=== PATIENT | male | born 1945 | race Caucasian/White ===

== ENCOUNTER 2016-11-22 08:26 | Day surgery (SDC) | payer MEDICARE, OTHER ==
[2016-11-22] MEDS: Lactated Ringers 1,000 ML IV SCH (09:08)
[2016-11-22] MEDS ORDERED: Acetaminophen 1,000 MG in Premix Bag 1 BAG IV ONE (10:08)
[2016-11-22] MEDS ORDERED: Ondansetron 4 MG/2 ML SDV ONE (11:05)
[2016-11-22] MEDS ORDERED: fentaNYL 100 MCG/2 ML SDV ONE (11:05)
[2016-11-22] MEDS ORDERED: Ketorolac 30 MG/ML SDV ONE (11:05)
[2016-11-22] MEDS ORDERED: Propofol 200 MG/20 ML SDV ONE ×2 (11:05→11:35)
[2016-11-22] MEDS ORDERED: Midazolam 1 MG/ML 2 ML SDV ONE (11:06)
[2016-11-22] MEDS ORDERED: ceFAZolin 1 GM Vial ONE (11:27)
[2016-11-22] MEDS ORDERED: Succinylcholine 200 MG/10 ML MDV ONE (11:35)
[2016-11-22] MEDS: Bupivacaine 0.25%/EPINEPHrine 1:200,000 30 ML SDV INFILT ONE (11:55)
[2016-11-22] MEDS ORDERED: Lactated Ringers 1,000 ML ONE (12:18)
[2016-11-22] MEDS: Acetaminophen/oxyCODONE 325-5 MG Tab PO PRN (14:22)
[2016-11-22 15:02] VITALS: BP 130/69
--- NOTE | 2016-11-25 09:31 | OR ---
PREOPERATIVE DIAGNOSIS: Left indirect inguinal hernia. POSTOPERATIVE DIAGNOSIS: Left indirect inguinal hernia. PROCEDURE PROPOSED: Left indirect inguinal hernia repair, tension free with mesh. PROCEDURE DONE: Left indirect inguinal hernia repair, tension free with mesh. INDICATION: A 71-year-old gentle with a rather large inguinal scrotal hernia, who comes in for elective repair. TECHNIQUE: The patient was brought to the operative suite and given a general endotracheal anesthetic by DEPUTY FIRE CHIEF. The left groin area was trimmed and sterilely prepped and draped. The skin was then locally anesthetized with 4% Marcaine, and an oblique incision was made in the left groin carried down through the subcutaneous tissue. The external oblique fascia was opened along its direction of fibers. The patient was found to have a very large hernia sac. I reduced the hernia. I freed up the hernia sac from the cord structures and placed a Paris drain around the cord structures. In the process of freeing up the hernia sac, some bleeding was encountered from the inferior epigastric artery and vein and this was controlled with clamping and ligation with several stitches of Ethibond sutures. After obtaining good hemostasis, a plug was placed into the internal ring and anchored circumferentially with interrupted 0 Ethilon sutures. The keyhole flat piece of mesh was then placed across the inguinal floor anchoring it to medially to the symphysis pubis, inferiorly to the inguinal ligament, and then laterally to the internal oblique fascia, placed around the cord, anchored with several stitches out laterally, and the external oblique fascia was then closed over the cord with a running 3-0 Vicryl, the subcutaneous tissues was reapproximated with interrupted 3-0 Vicryl, and the skin closed with subcuticular stitch of 4-0 Vicryl, and a sterile pressure dressing was applied. He tolerated the procedure well. Blood loss was probably 40-50 mL. He was taken back to recovery in good condition. SCM: 11/22/2016 12:39:46 MODL: 11/22/2016 17:47:00 /[id number]
== END 2016-11-22 15:00 | disposition home or self-care (01) ==
LOC: VM.SDS 08:26
PROVIDERS: ATTEND Surgery
DX: K40.90 Unilateral inguinal hernia, without obstruction or gangrene, not specified as recurrent (principal); I10 Essential (primary) hypertension; E78.5 Hyperlipidemia, unspecified; E03.9 Hypothyroidism, unspecified; E05.00 Thyrotoxicosis with diffuse goiter without thyrotoxic crisis or storm; Z79.899 Other long term (current) drug therapy; Z79.82 Long term (current) use of aspirin
CPT/HCPCS: 00830; A9270-GY; C1781; J0330; J0690; J1885; J2250; J2405; J2704; J3010; J7120

== ENCOUNTER 2018-04-11 13:19 | Emergency (ER) | payer MEDICARE, OTHER ==
[2018-04-11 13:31] VITALS: BP 140/78
[2018-04-11] MEDS ORDERED: Lidocaine 1% 30 ML SDV INJECT ONE (13:45)
--- NOTE | 2018-04-11 14:22 | EDM.PDOC ---
ED HPI GENERAL MEDICAL PROBLEM - General Chief Complaint: Laceration Stated Complaint: CUT RIGHT WRIST Time Seen by Provider: 04/11/18 13:30 Source of Information: Reports: Patient History Limitations: Reports: No Limitations - History of Present Illness INITIAL COMMENTS - FREE TEXT/NARRATIVE: PtRoxane presents to ER with complaints of laceration to his R wrist. States that he sustained to laceration while removing a window. His tetanus is UTD. He states that ROM in the wrist and fingers are normal Denies any paresthesia distal to the area of injury. He states that the injury is isolated to the R wrist. Location: Reports: Upper Extremity, Right - Related Data Allergies Allergy/AdvReac Type Severity Reaction Status Date / Time No Known Allergies Allergy Verified 04/11/18 13:31 Home Meds: Home Meds Aspirin [Ecotrin] 81 mg PO DAILY 11/18/16 [History] Hydrochlorothiazide 25 mg PO DAILY 11/18/16 [History] Levothyroxine 175 mcg PO DAILY 11/18/16 [History] Lisinopril 40 mg PO DAILY 11/18/16 [History] Simvastatin [Zocor] 40 mg PO BEDTIME 11/18/16 [History] Past Medical History HEENT History: Reports: None Cardiovascular History: Reports: High Cholesterol, Hypertension Respiratory History: Reports: None Gastrointestinal History: Reports: None Genitourinary History: Reports: None Musculoskeletal History: Reports: None Neurological History: Reports: None Psychiatric History: Reports: None Endocrine/Metabolic History: Reports: Hypothyroidism Other Endocrine/Metabolic History: graves disease Hematologic History: Reports: None Immunologic History: Reports: None Oncologic (Cancer) History: Reports: None Dermatologic History: Reports: None - Past Surgical History Head Surgeries/Procedures: Reports: None HEENT Surgical History: Reports: Tonsillectomy GI Surgical History: Reports: Appendectomy Endocrine Surgical History: Reports: Other (See Below) Other Endocrine Surgeries/Procedures: Overactive thyroid Musculoskeletal Surgical History: Reports: None Oncologic Surgical History: Reports: None Social & Family History - Tobacco Use Smoking Status *Q: Never Smoker Second Hand Smoke Exposure: Yes - Recreational Drug Use Recreational Drug Use: No ED ROS GENERAL - Review of Systems Review Of Systems: See Below Musculoskeletal: Reports: Other (laceration to R dorsum or wrist) Neurological: Reports: No Symptoms ED EXAM, SKIN/RASH Exam: See Below Exam Limited By: No Limitations General Appearance: Alert, WD/WN, No Apparent Distress Extremities: Normal Inspection, Normal Range of Motion, Non-Tender, Normal Capillary Refill, Other (L wrist pain/laceration) Neurological: Alert, Oriented, CN II-XII Intact, Normal Cognition, Normal Gait, Normal Reflexes, No Motor/Sensory Deficits Course - Vital Signs Last Recorded V/S: Last Vital Signs Temp 36.3 C 04/11/18 13:25 Pulse 65 04/11/18 13:25 Resp 16 04/11/18 13:25 BP 140/78 04/11/18 13:25 Pulse Ox 97 04/11/18 13:25 - Orders/Labs/Meds Meds: Medications Discontinued Medications Generic Name Dose Route Start Last Admin Trade Name Najma PRN Reason Stop Dose Admin Lidocaine HCl 30 ml 04/11/18 13:45 04/11/18 13:56 Xylocaine-Mpf 1% INJECT 04/11/18 13:46 30 ml ONETIME ONE Administration Departure - Departure Time of Disposition: 14:22 Disposition: Home, Self-Care 01 Clinical Impression: Laceration - Discharge Information Instructions: Laceration Care, Adult Forms: ED Department Discharge Additional Instructions: Keep dry for 24 hours. Sutures out in 10 days. This can be done in the clinic. Return if redness, swelling, or discharge from the area. Keep open to air as much as possible, cover if you anticipate the area getting dirty.
== END 2018-04-11 14:14 | disposition home or self-care (01) ==
LOC: VM.ED 13:19
DX: S61.511A Laceration without foreign body of right wrist, initial encounter (principal); I10 Essential (primary) hypertension; Z79.82 Long term (current) use of aspirin; Z79.899 Other long term (current) drug therapy; Z77.22 Contact with and (suspected) exposure to environmental tobacco smoke (acute) (chronic); W25.XXXA Contact with sharp glass, initial encounter
CPT/HCPCS: 12002; 99282

== ENCOUNTER 2019-10-05 10:32 | Emergency (ER) | payer OTHER, MEDICARE ==
[2019-10-05] MEDS ORDERED: Sodium Chloride 0.9% 10 ML Syringe FLUSH PRN ×3 (10:39→11:56)
[2019-10-05] MEDS ORDERED: HYDROmorphone 1 MG/ML Syringe IVPUSH ONE ×2 (10:47→12:04)
[2019-10-05] MEDS ORDERED: Ondansetron 4 MG/2 ML SDV IVPUSH ONE (10:47)
--- NOTE | 2019-10-05 10:51 | EDM.PDOC ---
ED HPI GENERAL MEDICAL PROBLEM - General Chief Complaint: Trauma Stated Complaint: Fall Time Seen by Provider: 10/05/19 10:35 Source of Information: Reports: EMS - History of Present Illness INITIAL COMMENTS - FREE TEXT/NARRATIVE: Colby is a 73 y/o male who is brought to the ER by EMS after he fell off of a ladder that he was standing on while cleaning the snow off the roof of his house. He was about 6-7 feet up on the ladder when it slipped. He landed on his left side and was unable to get up. He was not outside very long before someone saw him and called 911. He is complaining of left sided chest/rib, left sided back pain, and left sided hip pain. Denies LOC. He fell onto the cement. It hurts to take a deep breath. - Related Data Allergies Allergy/AdvReac Type Severity Reaction Status Date / Time No Known Allergies Allergy Verified 04/11/18 13:31 Home Meds: Home Meds Aspirin [Ecotrin EC] 81 mg PO DAILY 11/18/16 [History] Hydrochlorothiazide 25 mg PO DAILY 11/18/16 [History] Levothyroxine 175 mcg PO DAILY 11/18/16 [History] Lisinopril 40 mg PO DAILY 11/18/16 [History] Simvastatin [Zocor] 40 mg PO BEDTIME 11/18/16 [History] Past Medical History HEENT History: Reports: None Cardiovascular History: Reports: High Cholesterol, Hypertension Respiratory History: Reports: None Gastrointestinal History: Reports: None Genitourinary History: Reports: None Musculoskeletal History: Reports: None Neurological History: Reports: None Psychiatric History: Reports: None Endocrine/Metabolic History: Reports: Hypothyroidism Other Endocrine/Metabolic History: graves disease Hematologic History: Reports: None Immunologic History: Reports: None Oncologic (Cancer) History: Reports: None Dermatologic History: Reports: None - Past Surgical History Head Surgeries/Procedures: Reports: None HEENT Surgical History: Reports: Tonsillectomy GI Surgical History: Reports: Appendectomy Endocrine Surgical History: Reports: Other (See Below) Other Endocrine Surgeries/Procedures: Overactive thyroid Musculoskeletal Surgical History: Reports: None Oncologic Surgical History: Reports: None Review of Systems - Review of Systems Review Of Systems: See Below Constitutional: Reports: No Symptoms Eyes: Reports: No Symptoms Ears: Reports: No Symptoms Nose: Reports: No Symptoms Mouth/Throat: Reports: No Symptoms Respiratory: Reports: No Symptoms, Pleuritic Chest Pain Cardiovascular: Reports: Chest Pain (left sided) GI/Abdominal: Reports: No Symptoms Genitourinary: Reports: No Symptoms Musculoskeletal: Reports: Back Pain, Other (left sided rib and hip pain) Skin: Reports: No Symptoms Neurological: Reports: No Symptoms Psychiatric: Reports: No Symptoms ED EXAM, GENERAL - Physical Exam Exam: See Below General Appearance: Alert, WD/WN, No Apparent Distress, Other (Elderly male, secured on spine board) Nose: Normal Inspection Throat/Mouth: Normal Teeth, Normal Voice Head: Atraumatic, Normocephalic Neck: Other (c collar remains on) Respiratory/Chest: No Respiratory Distress, Lungs Clear, Normal Breath Sounds, Other (+tender along left lateral rib region, no obvious injury) Cardiovascular: Regular Rate, Rhythm, No Edema, No Murmur GI/Abdominal: Normal Bowel Sounds, Soft, Non-Tender, Pelvis Stable (Male) Exam: Normal Inspection Rectal (Males) Exam: Deferred Back Exam: Normal Inspection Extremities: Normal Inspection, Normal Range of Motion, Normal Capillary Refill Neurological: Alert, Oriented, CN II-XII Intact, Normal Cognition Psychiatric: Normal Affect, Normal Mood Skin Exam: Warm, Dry, Intact, Normal Color, No Rash Lymphatic: No Adenopathy EKG INTERPRETATION EKG Date: 10/05/19 Time: 11:20 Rhythm: NSR Rate (Beats/Min): 55 [place]: Normal (55) P-Wave: Present QRS: LBBB ST-T: Normal EKG Interpretation Comments: SR with LBBB Course - Vital Signs Text/Narrative:: 1035 Patient is seen on arrival to the ED. Labs, EKG, and CTs are ordered. Plain film CXR and Pelvis deferred since patient has stable vitals and will need CTs due to mechanism of injury. Dilaudid 1 mg IVP was ordered for pain. 1130 CT of Chest/Abd/Pelvis W Contrast viewed by WILDLIFE CONTROL AGENT, notes 5-6 left sided fractured ribs and a pelvis fracture. Radiology read is pending at this time. [address] [facility] contacted and case presented. Dr Franco accepted patient for transport to the ER. Vitals remain stable. IV bolus of NS infusing. Patient packaged for transport and left the ED in stable condition with [facility]. - Orders/Labs/Meds Orders: Active Orders 24 hr Category Date Time Status EKG Documentation Completion [RC] STAT Care 10/05/19 10:44 Active Vital Signs [RC] Q5M Care 10/05/19 10:41 Active Abdomen w Cont [CT] Stat Exams 10/05/19 10:41 Ordered Cervical Spine wo Cont [CT] Stat Exams 10/05/19 10:41 Ordered Chest Abdomen Pelvis w Cont [CT] Stat Exams 10/05/19 10:41 Ordered Head wo Cont [CT] Stat Exams 10/05/19 10:41 Ordered Pelvis w Cont [CT] Stat Exams 10/05/19 10:41 Ordered COMPREHENSIVE METABOLIC PN,CMP [CHEM] Stat Lab 10/05/19 11:14 Received DRUG SCREEN, URINE [URCHEM] Stat Lab 10/05/19 10:41 Ordered ETHANOL BLOOD MEDICAL [CHEM] Stat Lab 10/05/19 11:14 Received TROPONIN I [CHEM] Stat Lab 10/05/19 11:14 Received UA W/MICROSCOPIC [URIN] Stat Lab 10/05/19 10:41 Ordered Sodium Chloride 0.9% @ Wide Open(1,000ml) Med 10/05/19 11:27 Ordered Sodium Chloride 0.9% [Normal Saline] 1,000 ml IV ONETIME Sodium Chloride 0.9% [Saline Flush] Med 10/05/19 10:39 Active 10 ml FLUSH ASDIRECTED PRN Sodium Chloride 0.9% [Saline Flush] Med 10/05/19 10:39 Active 10 ml FLUSH ASDIRECTED PRN Peripheral IV Insertion Adult [OM.PC] Urgent Oth 10/05/19 10:41 Ordered Saline Lock Insert [OM.PC] Urgent Oth 10/05/19 10:41 Ordered Medication Orders Sodium Chloride (Normal Saline) 1,000 mls @ 999 mls/hr IV ONETIME ONE Stop: 10/05/19 12:27 Sodium Chloride (Saline Flush) 10 ml FLUSH ASDIRECTED PRN PRN Reason: Keep Vein Open Sodium Chloride (Saline Flush) 10 ml FLUSH ASDIRECTED PRN PRN Reason: Keep Vein Open Labs: Laboratory Tests 10/05/19 10/05/19 Range/Units 11:14 11:14 WBC 16.3 H (4.0-10.0) x10^3/uL RBC 3.86 L (4.5-6.0) x10^6/uL Hgb 12.1 L (14.0-18.0) g/dL Hct 36.8 L (40.0-52.0) % MCV 95.3 H (78.0-93.0) fL MCH 31.3 (26.0-32.0) pg MCHC 32.9 (32.0-36.0) g/dL RDW Coeff of [place] 13.1 (10.0-15.0) % Plt Count 230 (130-400) x10^3/uL Add Manual Diff Yes Neutrophils % (Manual) 69 (50-80) % Band Neutrophils % 22 H (0-6) % Lymphocytes % (Manual) 7 L (25-50) % Monocytes % (Manual) 2 (2-11) % Platelet Estimate Adequate PT 11.2 (10.0-12.8) SEC INR 1.0 L (2.0-3.5) APTT 23.1 L (24.0-36.0) SEC Meds: Medications Generic Name Dose Route Start Last Admin Trade Name Freq PRN Reason Stop Dose Admin Sodium Chloride 1,000 mls @ 999 mls/hr 10/05/19 11:27 Normal Saline IV 10/05/19 12:27 ONETIME ONE Sodium Chloride 10 ml 10/05/19 10:39 Saline Flush FLUSH ASDIRECTED PRN Keep Vein Open Sodium Chloride 10 ml 10/05/19 10:39 Saline Flush FLUSH ASDIRECTED PRN Keep Vein Open Discontinued Medications Generic Name Dose Route Start Last Admin Trade Name Freq PRN Reason Stop Dose Admin Hydromorphone HCl 1 mg 10/05/19 10:47 Dilaudid IVPUSH 10/05/19 10:48 ONETIME ONE Iopamidol 100 ml 10/05/19 11:05 10/05/19 11:43 Isovue-300 (61%) IVPUSH 10/05/19 11:06 100 ml ONETIME ONE Administration Ondansetron HCl 4 mg 10/05/19 10:47 Zofran IVPUSH 10/05/19 10:48 ONETIME ONE - Radiology Interpretation Free Text/Narrative:: CT Chest/Abd/Pelvic W=note 5+ fractures ribs on the left side, pelvis fracture ( radiology reading pending) CT Head WO and CSpine WO=pending Departure - Departure Time of Disposition: 11:35 Disposition: DC/Tfer to [email or web address] Clinical Impression: Fall from ladder, Pelvis fracture, Hx of essential hypertension, Multiple rib fractures involving four or more ribs - Discharge Information *PRESCRIPTION DRUG MONITORING PROGRAM REVIEWED*: Not Applicable *COPY OF PRESCRIPTION DRUG MONITORING REPORT IN PATIENT SARAI: Not Applicable Referrals: He Masterson MD [Primary Care Provider] - Forms: ED Department Discharge, Interfacility Transfer EMTALA Additional Instructions: -Transfer to [facility] ER to Dr Franco via [facility] -IV fluids/pain meds as needed for transport -CT radiology readings pending, continue Cpsine immobilization Sepsis Event Note - Focused Exam Date Exam was Performed: 10/05/19 Time Exam was Performed: 11:43 - Problem List & Annotations (1) Multiple rib fractures involving four or more ribs SNOMED Code(s): 1571183 Code(s): S22.49XA - MULTIPLE FRACTURES OF RIBS, UNSP SIDE, INIT FOR CLOS FX Status: Acute Current Visit: Yes (2) Pelvis fracture SNOMED Code(s): 94080406 Code(s): S32.9XXA - FRACTURE OF UNSP PARTS OF LUMBOSACRAL SPINE AND PELVIS, INIT Status: Acute Current Visit: Yes (3) Fall from ladder SNOMED Code(s): 45989138 Code(s): W11.XXXA - FALL ON AND FROM LADDER, INITIAL ENCOUNTER Status: Acute Current Visit: No - Problem List Review Problem List Initiated/Reviewed/Updated: Yes - My Orders Last 24 Hours: My Active Orders 10/05/19 10:39 Sodium Chloride 0.9% [Saline Flush] 10 ml FLUSH ASDIRECTED PRN Sodium Chloride 0.9% [Saline Flush] 10 ml FLUSH ASDIRECTED PRN 10/05/19 10:41 Vital Signs [RC] Q5M Abdomen w Cont [CT] Stat Cervical Spine wo Cont [CT] Stat Chest Abdomen Pelvis w Cont [CT] Stat Head wo Cont [CT] Stat Pelvis w Cont [CT] Stat DRUG SCREEN, URINE [URCHEM] Stat UA W/MICROSCOPIC [URIN] Stat Peripheral IV Insertion Adult [OM.PC] Urgent Saline Lock Insert [OM.PC] Urgent 10/05/19 10:44 EKG Documentation Completion [RC] STAT 10/05/19 11:14 COMPREHENSIVE METABOLIC PN,CMP [CHEM] Stat ETHANOL BLOOD MEDICAL [CHEM] Stat TROPONIN I [CHEM] Stat 10/05/19 11:27 Sodium Chloride 0.9% @ Wide Open(1,000ml) Sodium Chloride 0.9% [Normal Saline] 1 ,000 ml IV ONETIME - Assessment/Plan Last 24 Hours: My Active Orders 10/05/19 10:39 Sodium Chloride 0.9% [Saline Flush] 10 ml FLUSH ASDIRECTED PRN Sodium Chloride 0.9% [Saline Flush] 10 ml FLUSH ASDIRECTED PRN 10/05/19 10:41 Vital Signs [RC] Q5M Abdomen w Cont [CT] Stat Cervical Spine wo Cont [CT] Stat Chest Abdomen Pelvis w Cont [CT] Stat Head wo Cont [CT] Stat Pelvis w Cont [CT] Stat DRUG SCREEN, URINE [URCHEM] Stat UA W/MICROSCOPIC [URIN] Stat Peripheral IV Insertion Adult [OM.PC] Urgent Saline Lock Insert [OM.PC] Urgent 10/05/19 10:44 EKG Documentation Completion [RC] STAT 10/05/19 11:14 COMPREHENSIVE METABOLIC PN,CMP [CHEM] Stat ETHANOL BLOOD MEDICAL [CHEM] Stat TROPONIN I [CHEM] Stat 10/05/19 11:27 Sodium Chloride 0.9% @ Wide Open(1,000ml) Sodium Chloride 0.9% [Normal Saline] 1 ,000 ml IV ONETIME Plan: Transfer to [facility]
[2019-10-05] MEDS ORDERED: Iopamidol 612 MG/ML 100 ML Bottle IVPUSH ONE (11:05)
[2019-10-05] MEDS ORDERED: Sodium Chloride 0.9% 1,000 ML IV ONE ×2 (11:27→14:29)
[2019-10-05 11:44] LABS: CHLORIDE,CL 103 mmol/L (98-107); SODIUM,NA 141 mmol/L (136-145)
[2019-10-05 11:46] LABS: BARBITURATE SCREEN,URINE NEGATIVE (NEGATIVE); BENZODIAZEPINES SCREEN,URINE NEGATIVE (NEGATIVE); EDDP,URINE SCREEN NEGATIVE (NEGATIVE); METHAMPHETAMINE SCREEN, URINE NEGATIVE (NEGATIVE)
[2019-10-05 11:47] LABS: TCA SCREEN,URINE NEGATIVE (NEGATIVE); THC SCREEN,URINE 50 NG/ML NEGATIVE (NEGATIVE)
--- NOTE | 2019-10-05 11:54 | CT ---
[id number] CT/CT Cervical Spine WO IV EXAM: NONCONTRAST CERVICAL SPINE CT INDICATION: FALL OFF LADDER. COMPARISON: None. DISCUSSION: The vertebral bodies are normal in height and alignment. No fracture or suspicious osseous lesion is identified. Mild to moderate degenerative disc disease and facet arthropathy throughout the cervical spine. IMPRESSION: 1. No evidence of acute cervical spine trauma. Randolph Fuentes MD 10/05/19 2316 Thank you for allowing us to participate in the care of your patient.
--- NOTE | 2019-10-05 11:55 | CT ---
[id number] CT/CT Head WO IV EXAM: CT Head WO IV CLINICAL DATA: FALL OFF LADDER. COMPARISON STUDY: None FINDINGS: No intracranial hemorrhage, extra-axial fluid collection, mass, or acute ischemia. 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 Generalized parenchymal atrophy with scattered areas of nonspecific white matter disease, commonly seen as sequela of chronic microvascular ischemia. Soft tissues are unremarkable. Mucous retention cyst within the right maxillary sinus. Otherwise, the remaining paranasal sinuses and mastoid air cells are well aerated and clear. IMPRESSION: No acute intracranial findings. Drake Collins DO 10/05/19 1153 Thank you for allowing us to participate in the care of your patient.
--- NOTE | 2019-10-05 12:13 | CT ---
[id number] CT/CT Chest Abdomen Pelvis W IV EXAM: CT Chest Abdomen Pelvis W IV CLINICAL DATA: FALL OFF LADDER. COMPARISON STUDY: None. FINDINGS: Small left pleural effusion with left lower lobe pulmonary contusion and/or dependent atelectasis and a small pneumothorax seen in the anterior base of the left hemithorax on series 2 image 78 as well as a small amount in the paramediastinal region of the right upper lobe. No evidence of traumatic aortic injury. Heart is normal in size. No pericardial effusion. Abdomen and pelvis: Liver, spleen, gallbladder, pancreas, adrenal glands, and kidneys are unremarkable. No evidence of bowel injury, obstruction, or inflammation. Urinary bladder is intact. No lymphadenopathy, free fluid, or pneumoperitoneum. Bones and soft tissues: Multiple acute rib fractures including: - Flail segments of the sixth, seventh, eighth, ninth, and 10th ribs. Posterior fractures of the seventh and ninth ribs are displaced at least a shaft width. - Nondisplaced left fourth, fifth, and 11th rib fracture. 12th rib is hypoplastic. Additional fractures including: - Acute appearing mild T4 compression fracture - Nondisplaced left T8 and T9 transverse process - Left transverse processes at L1-L5 -Possible nondisplaced fracture of the right L1 inferior articulating facet - Nondisplaced right sacral ala - Avulsion fracture along the anterior left sacral ala - Slightly displaced fracture of the posterior right iliac bone. A portion of the fracture extends through the subchondral endplate at the sacroiliac joint - Nondisplaced intra-articular fracture of the posterior left iliac bone - Acute displaced fracture of the bilateral superior and inferior pubic rami Iliac and sacral fractures result in widening of the bilateral anterior sacroiliac joints. Bleeding within the pelvis left greater than right with an area of active bleeding just anterior to the left sacroiliac joint (series 2 image 23). 22 mm hematoma in the left left pelvis. IMPRESSION: Extensive pelvic fractures with widening of the bilateral sacroiliac joints and bleeding within the pelvis, including an area of active bleeding left of midline described above. Acute fractures of the left fourth through 11th ribs. 6 through 10th ribs demonstrate flail segments of which at least 2 fractures are displaced. Tiny left pneumothorax. Left effusion and pulmonary contusion. Multiple additional fractures are described in detail above. Results relayed to Yeni Isaac at time of dictation Aleksandr Dejesus MD 10/05/19 1212 Thank you for allowing us to participate in the care of your patient.
== END 2019-10-05 12:16 ==
LOC: VM.ED 10:32
DX: S32.592A Other specified fracture of left pubis, initial encounter for closed fracture (principal); S32.302A Unspecified fracture of left ilium, initial encounter for closed fracture; S22.42XA Multiple fractures of ribs, left side, initial encounter for closed fracture; J93.9 Pneumothorax, unspecified; I10 Essential (primary) hypertension; E78.00 Pure hypercholesterolemia, unspecified; E03.9 Hypothyroidism, unspecified; Z79.82 Long term (current) use of aspirin; Z79.890 Hormone replacement therapy; Z79.899 Other long term (current) drug therapy; W11.XXXA Fall on and from ladder, initial encounter; Y93.H9 Activity, other involving exterior property and land maintenance, building and construction; Y92.008 Other place in unspecified non-institutional (private) residence as the place of occurrence of the external cause
CPT/HCPCS: 36415; 36430; 70450; 71260; 72125; 74177; 80053; 80305-QW; 81001; 84484; 85025; 85610; 85730; 86850; 86900; 86901; 86920; 86922; 93005; 93010; 96361; 96374; 96375; 96376; 99284-GF; 99285-25; G0480; J1170; J2405; J7030; P9016; Q9967

== ENCOUNTER 2019-10-22 12:27 | Inpatient (IN) | payer MEDICARE, OTHER ==
[2019-10-22] MEDS ORDERED: Heparin Sodium 100 Units/ML 3 ML Syringe FLUSH PRN (17:18)
[2019-10-22] MEDS ORDERED: tiZANidine 4 MG Tab PO PRN (17:18)
[2019-10-22] MEDS ORDERED: Bisacodyl 10 MG Supp RECTAL PRN (17:18)
[2019-10-22] MEDS: Acetaminophen 500 MG Tab PO SCH (18:06)
[2019-10-22] MEDS: Melatonin 3 MG Tab PO SCH ×2 (20:31→20:40)
[2019-10-22] MEDS: Simvastatin 40 MG Tab PO SCH ×2 (20:31→20:41)
[2019-10-22] MEDS: Polyethylene Glycol 3350 Powder 17 GM Packet PO SCH (20:31)
[2019-10-22] MEDS: Metoprolol Tartrate 25 MG Tab PO SCH ×2 (20:31→20:40)
[2019-10-22] MEDS ORDERED: Heparin Sodium 100 Units/ML 3 ML Syringe FLUSH SCH (21:00)
[2019-10-22] MEDS: Sodium Chloride 0.9% 10 ML Syringe IV SCH (22:29)
[2019-10-22] MEDS: Heparin Sodium 100 Units/ML 3 ML Syringe FLUSH PRN (22:30)
[2019-10-22] MEDS: Beta-Carotene (Vitamin A) w/Vitamin C & E plus Minerals Tab PO SCH (22:32)
[2019-10-23] MEDS: Acetaminophen 500 MG Tab PO SCH ×6 (01:41→23:48)
--- NOTE | 2019-10-23 04:06 | HP ---
CHIEF COMPLAINT: Trauma. HISTORY OF PRESENT ILLNESS: This is a 73-year-old male who was trying to clean some snow off his roof on a ladder, which slipped and fell forward. He fell about 8 feet, suffering some multiple rib fractures on the left, needing surgical rib fixation, ribs 6 through 9, and a complex bilateral pelvic fracture requiring ORIF of bilateral iliac and sacral fractures. He had a T4 compression fracture, transverse process fractures, T8 through T9 and L2 through L5, a large retroperitoneal pelvic hematoma with acute blood loss anemia, atrial fibrillation with RVR postop, but in sinus rhythm before discharge. He also was apparently getting H influenzae pneumonia while he was there, delirium due to the prolonged illness, which is resolving and better per his , but he is still getting up at night, not realizing that he is not supposed to walk. 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 He got some neostigmine. He got some Relistor to block the effects of narcotics. Luckily, he has been off them for a couple of days and his pain is manageable. He had Reglan. That was stopped today. He was on half TPN stopped yesterday as he was able to eat and tolerated diet. He denies any nausea or abdominal pain currently. Did tell me he had a good bowel movement today. He is able to work with PT using the slide board. That started yesterday. He may do pivot transfers. He had some followup x- rays, which all looked good. His chest tube has come out. He did have some findings on his cerebral hemisphere consistent with an old infarct. This was on his imaging. Prior to the admission, he had a history of hypertension, hyperlipidemia, and Graves disease. He did not report any known history of strokes or heart disease. The patient comes today. He is not coughing. He feels his breathing is improved. He has a lot of leg swelling. He did get 20 mEq of IV potassium through his PICC line as well as 20 mEq oral today. Because of his ileus, they had been holding back on a lot of oral potassium. It was actually just 2.9. He is also on hydrochlorothiazide. The patient has been getting Lovenox for DVT prophylaxis per Orthopedics to continue until 11/19. The patient is also to wear his TLSO brace when up and out of bed. Cardiology did recommend amiodarone for him, which he continues. He is back on room air. He was in a drug-induced coma for 2-3 days after surgery per his . ALLERGIES: None. MEDICATION LIST: Reviewed and includes Lidoderm patch for pain, MiraLAX 2 times a day, docusate, senna, Dulcolax suppository p.r.n., melatonin 3 mg at bedtime, heparin flushes for the PICC, Zanaflex 2 mg every 8 hours for spasm, Lovenox 40 mg for 28 days, multivitamin daily, levothyroxine 175 mcg daily, Zocor 40 mg at bedtime, hydrochlorothiazide 25 mg daily, aspirin 81 mg daily. PAST MEDICAL HISTORY: Again, he was quite healthy. He had some Graves disease, now hypothyroid after treatment, hyperlipidemia, essential hypertension. FAMILY HISTORY: Father had coronary artery disease, in his 40s, but drank and smoked. Otherwise, his mother is also at 91, had macular degeneration surgery. He has had the tonsillectomy, rib fixation, radionuclide therapy for thyroid destruction, fusion of the SI joint, and appendectomy. SOCIAL HISTORY: He is . He lives at home with his in [place], [place]. He is retired from [employer]. He is a nonsmoker, nondrinker. REVIEW OF SYSTEMS: The patient denies that he has had any fever or chills. His weight today was up 10 pounds since it was back in May. HEENT: He denies any trouble swallowing. Cardiac: No chest pain. He has not noticed any palpitations. Respiratory: No cough. Abdomen: He denies any nausea, vomiting, or diarrhea today. Musculoskeletal: He has had a lot of leg swelling. He has had some pain in his ribs and hip, but otherwise he is managing. Otherwise, all systems reviewed and found to be negative unless otherwise stated. PHYSICAL EXAMINATION: Vital signs: His weight 79.069 kg, temp 97.8, pulse 63, blood pressure 119/64, respiratory rate 18, O2 of 97% on room air. General: He is in no acute distress. Heart: Irregularly irregular, but rates are controlled. Lungs: Sounds are clear to auscultation bilaterally without any crackles or wheezes appreciated. Abdomen: Slight distention, but positive bowel sounds. Slightly hypoactive, but soft, nontender. Extremities: Warm and dry. There is 2+ edema to the mid irby. Mental status: He is alert. He is orientated x3. He asks appropriate questions. His is at the bedside. LABORATORY WORK: Today from [place] was reviewed, did show his glucose 117 prior to transfer, BUN 23, creatinine 0.68, sodium 143, potassium 2.9, chloride 111, bicarb 24, calcium 8. His white count 8.5, hemoglobin 8.6, platelets 448. Magnesium was normal several days ago. ASSESSMENT: Trauma from a fall off ladder 8 feet while clearing snow, fell front side of his body first onto cement. He denies hitting his head. Denies that there was any cranial trauma. I do not see anything documented. He had multiple left-sided rib fractures, a pulmonary contusion, and hemopneumothorax status post chest tube which was removed. He had bilateral pelvic fractures status post open reduction and internal fixation. He had compression fractures of the spine, retroperitoneal hematoma with acute blood loss anemia. I do not see any report of transfusion in my review. He had the atrial fibrillation with rapid ventricular response. He still appears to be in an irregular rhythm. If this continues, we will do an EKG. He had the colonic pseudo-obstruction, which appears to be resolved; the delirium, which appears to be improved. said he still has some intermittent confusion like when he wakes up during the night and hypokalemia that is being replaced. SECONDARY: 1. Hypothyroidism, on home medications. 2. Essential hypertension, controlled. 3. Hyperlipidemia. PLAN: The patient will be admitted to swing bed [facility]. He will have PT and OT working with him. He is not to be ambulating. He is to be doing 30 pounds partial weightbearing to that right lower extremity and weightbearing as tolerated on the left lower extremity for pivot transfers only. He will continue the Lovenox for the 28 days and follow up with Dr. Ledbetter 6 weeks postop. He is also to follow up with Cardiology in 4 weeks to decide on the amiodarone. He will continue it for now. Neurosurgery in [address] of his thoracic spine. He will need followup x-rays of the pelvis when he sees Dr. Ledbetter. He will also see Trauma Surgery in 3 months for the rib fixation that Dr. Luna performed. He will continue the TLSO when out of bed. Wounds are all open to the air. There are no sutures in place. He should have daily electrolyte monitoring. Otherwise, he will continue on incentive spirometry. The PICC line will continue until it is no longer needed and then we will remove it. I if he has trouble with eating, drinking again, we will repeat x-rays and restart Reglan. Otherwise, the patient's plan of care is discussed with him and his . He is a code level 1. MKA: 10/22/2019 22:24:59 MODL: 10/23/2019 04:00:01 /[id number] MTDD
[2019-10-23] MEDS ORDERED: Potassium Chloride 10 MEQ Tab.ER PO SCH (08:00)
[2019-10-23] MEDS ORDERED: Hydrochlorothiazide 25 MG Tab PO SCH (08:00)
[2019-10-23] MEDS: Enoxaparin 40 MG/0.4 ML Syringe SUBCUT SCH (09:47)
[2019-10-23] MEDS: Aspirin 81 MG Tab.EC PO SCH (09:49)
[2019-10-23] MEDS: Metoprolol Tartrate 25 MG Tab PO SCH ×2 (09:49→19:17)
[2019-10-23] MEDS: Beta-Carotene (Vitamin A) w/Vitamin C & E plus Minerals Tab PO SCH ×2 (09:50→19:18)
[2019-10-23] MEDS: Amiodarone 200 MG Tab PO SCH (09:50)
[2019-10-23] MEDS: Sodium Chloride 0.9% 10 ML Syringe IV SCH ×2 (09:51→19:24)
[2019-10-23] MEDS: Polyethylene Glycol 3350 Powder 17 GM Packet PO SCH ×2 (09:52→19:26)
[2019-10-23] MEDS: Potassium Chloride Riders 20 MEQ in Premix Bag 1 BAG IV SCH ×2 (09:53→11:47)
[2019-10-23] MEDS: Lidocaine 4% 1 each Patch TOP SCH (11:53)
[2019-10-23] MEDS: Heparin Sodium 100 Units/ML 3 ML Syringe FLUSH SCH ×2 (11:55→19:24)
--- NOTE | 2019-10-23 13:41 | PN ---
Progress Note for GRETCHEN ALBRIGHT Date: 10/23/2019 Room #: VM.202 SUBJECTIVE: This is hospital day #2 on swing bed for a 73-year-old admitted after a prolonged stay for a trauma falling from a ladder with rib and pelvic fractures. The patient states his pain is under good control. His stomach has not been distended. He had a bowel movement this morning, but he does not feel like eating that much, he only ate about 30%. He has a little bit of nausea. He was on Reglan as inpatient for his ileus, but it was discontinued on transfer. He otherwise did get confused when he woke up this morning. He thought he was in [place] still, wondering when he was going to go to [place], and why his was not there. He was easily redirected and now is more alert and orientated and mentating appropriately. He has not noticed any chest pain, cough, shortness of breath, or irregular heart beats. His potassium unfortunately was still low this morning at 2.9. He is already getting IV potassium. OBJECTIVE: Vital Signs: His weight 79.0 on admission for kg, temperature 98.7, pulse 60, blood pressure 119/56, respiratory rate 18, and O2 of 97% on room air. General: He is in no acute distress. Heart: Regular rate and rhythm. Lungs: Lung sounds are clear to auscultation on the right. Left side is slightly decreased, but no crackles. No wheezes. Abdomen: Positive bowel sounds throughout. It is mildly distended, but nontender. Extremities: Warm and dry. He still has the at least 1+ edema to his ankles and calves. However, he is on SCDs and it seems to have improved a little. Mental Status: He is alert. He is orientated x3. LABORATORY DATA: Lab work did show again a potassium 2.9, magnesium 2.1. ASSESSMENT: 1. Trauma with rib, spinal, and pelvic fractures status post surgery, doing well. He is off pain pills. 2. Ileus after his surgeries. This seems to have been resolved. He is eating. Encouraging small frequent meals. Currently, I am going to restart his Reglan 10 mg daily and adjust as needed. 3. Hypokalemia, severe. He only got 20 oral and 20 IV yesterday. He never ended up eating the banana. We will increase him to 20 mEq 3 times a day. He got 40 IV also. Therefore, we will repeat again tomorrow. 4. Atrial fibrillation after his accident. He seems to be back in sinus now. He was reported to be in sinus on transfer. At this point, we discussed possibly putting him on Coumadin given a CT showing a previous stroke. He never had any clinical stroke versus continuing Lovenox for now. He needs it for deep venous thrombosis prophylaxis. At this point, we will wait, watch, and see as if he has any irregular heart beats, we will put him on an EKG check. The patient and his are agreeable to this plan. We are rechecking the hemoglobin on Friday, and if completely stable, may consider starting him on Eliquis for full anticoagulation. 5. Essential hypertension, controlled. I discussed with him and his . I am holding his hydrochlorothiazide until his potassium stabilizes. 6. Hypothyroidism. He is continuing his home medicine. 7. Hyperlipidemia. He will continue his home medicine. PLAN: The patient will continue swing bed cares. Hopefully, he will not need any further IV potassium tomorrow. Once he is stabilized, I will remove that PICC line. I discontinued the Zanaflex, he is not taking it. We will likely titrate Tylenol from 1000 q.i.d. down to t.i.d. tomorrow, but keep some p.r.n. Overall, the plan of care was discussed with him and his . TIFFANIE: 10/23/2019 13:09:42 MODL: 10/23/2019 13:35:33 /[id number] LORENZO
[2019-10-23] MEDS: Heparin Sodium 100 Units/ML 3 ML Syringe FLUSH PRN (14:09)
[2019-10-23] MEDS: Sodium Chloride 0.9% 10 ML Syringe IV PRN (14:10)
[2019-10-23] MEDS: Metoclopramide 10 MG Tab PO SCH (14:11)
[2019-10-23] MEDS: Potassium Chloride 10 MEQ Tab.ER PO SCH ×2 (14:11→19:17)
[2019-10-23] MEDS: Melatonin 3 MG Tab PO SCH (19:18)
[2019-10-23] MEDS: Simvastatin 40 MG Tab PO SCH (19:18)
[2019-10-24] MEDS: Acetaminophen 500 MG Tab PO SCH ×3 (06:07→19:52)
[2019-10-24] MEDS: Potassium Chloride 10 MEQ Tab.ER PO SCH ×3 (08:23→19:51)
[2019-10-24] MEDS: Aspirin 81 MG Tab.EC PO SCH (08:23)
[2019-10-24] MEDS: Metoprolol Tartrate 25 MG Tab PO SCH ×2 (08:23→19:54)
[2019-10-24] MEDS: Enoxaparin 40 MG/0.4 ML Syringe SUBCUT SCH (08:23)
[2019-10-24] MEDS: Amiodarone 200 MG Tab PO SCH (08:23)
[2019-10-24] MEDS: Polyethylene Glycol 3350 Powder 17 GM Packet PO SCH (08:24)
[2019-10-24] MEDS: Sodium Chloride 0.9% 10 ML Syringe IV SCH ×2 (08:24→19:49)
[2019-10-24] MEDS: Metoclopramide 10 MG Tab PO SCH (08:24)
[2019-10-24] MEDS: Beta-Carotene (Vitamin A) w/Vitamin C & E plus Minerals Tab PO SCH ×2 (08:24→19:51)
[2019-10-24] MEDS: Heparin Sodium 100 Units/ML 3 ML Syringe FLUSH SCH ×2 (08:25→19:50)
[2019-10-24] MEDS: Lidocaine 4% 1 each Patch TOP SCH (08:27)
--- NOTE | 2019-10-24 10:38 | PCM.SN ---
- Free Text/Narrative Note: Patient ate 100 % today now resting so I didn't wake him up as nurses reports he is feeling well but having watery stools. Decision made to cut miralax down to once daily. Potassium only came up to 3.1 depsite 40 IV and 60 oral yesterday. We will give 80 IV today and continue the 60 oral and repeat labs tomorrow. I also decreased tylenol to TID and prn available. Will check in with the patient later today or tomorrow. BP ok off HCTZ he is progressing ok and swelling was better yesterday we will likely restart HCTZ when his potassium improves.
[2019-10-24] MEDS: Potassium Chloride Riders 20 MEQ in Premix Bag 1 BAG IV SCH ×4 (11:00→15:47)
[2019-10-24] MEDS: Heparin Sodium 100 Units/ML 3 ML Syringe FLUSH PRN (16:58)
[2019-10-24] MEDS: Sodium Chloride 0.9% 10 ML Syringe IV PRN (16:58)
[2019-10-24] MEDS: Melatonin 3 MG Tab PO SCH (19:51)
[2019-10-24] MEDS: Simvastatin 40 MG Tab PO SCH (19:51)
[2019-10-25 07:08] LABS: CHLORIDE,CL 114 mmol/L (98-107); SODIUM,NA 146 mmol/L (136-145)
[2019-10-25 07:09] LABS: ANION GAP 13.4 mmol/L (10-20)
[2019-10-25] MEDS: Acetaminophen 500 MG Tab PO SCH ×3 (08:16→19:48)
[2019-10-25] MEDS: Aspirin 81 MG Tab.EC PO SCH (08:16)
[2019-10-25] MEDS: Amiodarone 200 MG Tab PO SCH (08:16)
[2019-10-25] MEDS: Potassium Chloride 10 MEQ Tab.ER PO SCH ×3 (08:17→19:55)
[2019-10-25] MEDS: Beta-Carotene (Vitamin A) w/Vitamin C & E plus Minerals Tab PO SCH ×2 (08:17→19:48)
[2019-10-25] MEDS: Metoclopramide 10 MG Tab PO SCH (08:17)
[2019-10-25] MEDS: Metoprolol Tartrate 25 MG Tab PO SCH ×2 (08:17→19:48)
[2019-10-25] MEDS: Polyethylene Glycol 3350 Powder 17 GM Packet PO SCH (08:18)
[2019-10-25] MEDS: Sodium Chloride 0.9% 10 ML Syringe IV SCH ×2 (08:18→19:47)
[2019-10-25] MEDS: Heparin Sodium 100 Units/ML 3 ML Syringe FLUSH SCH ×3 (08:18→19:47)
[2019-10-25] MEDS: Enoxaparin 40 MG/0.4 ML Syringe SUBCUT SCH (08:18)
--- NOTE | 2019-10-25 09:27 | PN ---
Progress Note for GRETCHEN ALBRIGHT Date: 10/25/2019 Room #: VM.202 SUBJECTIVE: This is a 73-year-old on swing bed after a trauma with rib fractures and a pelvic fracture. He had an ileus, but that has resolved. He is eating 100% of his meals. He is having bowel movements quite frequently and watery. He feels his abdominal distention has gone down significantly, but he still has some there. He is passing gas. He is not having any cough. No fevers. His potassium has been quite low. Despite getting 140 mEq yesterday, he only came up from 3.1 to 3.4. He has his pain under good control. OBJECTIVE: Vital Signs: Temperature 98.4, pulse 60, blood pressure 139/75, respiratory rate 16, O2 of 96% on room air. General: He is in no acute distress. Heart: Regular rate and rhythm. S1, S2 without murmur. Lungs: Lung sounds are clear to auscultation bilaterally without crackles or wheezes. Abdomen: Has positive bowel sounds throughout. It is mildly distended, but soft and nontender. Extremities: Warm and dry. He still has some 1+ edema at the ankles, but it is significantly improved. Mental Status: He is alert. He is orientated x3. Nursing reports he is still confused in the mornings, but it is improved since yesterday even. LABORATORY DATA: His lab work is a sodium 146, potassium 3.4, chloride 114, bicarb 22, BUN 18, creatinine 0.7, glucose 103, calcium 7.2, hemoglobin 9, white count 7.8, platelets 481. ASSESSMENT: 1. Trauma with rib, spinal, and pelvic fractures, status post surgery, doing well, off pain pills. 2. Ileus after his surgeries, seems to have resolved. He is eating well. He is still on Reglan 10 mg daily. I would continue with that and stop likely in a few days if things continue to go well. 3. Hypokalemia, improving. We will give him one more dose of IV potassium today and continue the 20 mEq t.i.d. orally. We will recheck tomorrow. 4. Atrial fibrillation after his accident. He seems to be back in a sinus rhythm now but had signs of old stroke on his CT. We will continue to monitor. We will leave up long-term anticoagulation and Coumadin to his primary care provider. 5. Essential hypertension, controlled. He is off hydrochlorothiazide due to severe hypokalemia. His swelling is improving. We will restart when indicated. 6. Hypothyroidism, hyperlipidemia, on home medications. 7. Loose stools due to medications we have cut back on Miralax to once daily yesterday PLAN: At this point, he will continue on swing bed cares. He has a PICC line in place and will get IV potassium today 20 mEq. He will also continue his oral. We will repeat tomorrow and adjust electrolyte replacement as needed. MKA: 10/25/2019 08:51:46 MODL: 10/25/2019 09:21:15 /[id number] LORENZO
[2019-10-25] MEDS ORDERED: Potassium Chloride Riders 20 MEQ in Premix Bag 1 BAG IV ONE (09:30)
[2019-10-25] MEDS ORDERED: Heparin Sodium 100 Units/ML 3 ML Syringe FLUSH PRN (09:30)
[2019-10-25] MEDS: Lidocaine 4% 1 each Patch TOP SCH (09:43)
[2019-10-25] MEDS: Sodium Chloride 0.9% 10 ML Syringe IV PRN (12:50)
[2019-10-25] MEDS: Melatonin 3 MG Tab PO SCH (19:47)
[2019-10-25] MEDS: Simvastatin 40 MG Tab PO SCH (19:48)
[2019-10-26] MEDS: Lidocaine 4% 1 each Patch TOP SCH (08:56)
[2019-10-26] MEDS: Beta-Carotene (Vitamin A) w/Vitamin C & E plus Minerals Tab PO SCH ×2 (08:57→19:26)
[2019-10-26] MEDS: Metoclopramide 10 MG Tab PO SCH (08:57)
[2019-10-26] MEDS: Aspirin 81 MG Tab.EC PO SCH (08:57)
[2019-10-26] MEDS: Potassium Chloride 10 MEQ Tab.ER PO SCH ×3 (08:58→19:26)
[2019-10-26] MEDS: Metoprolol Tartrate 25 MG Tab PO SCH ×2 (08:58→19:27)
[2019-10-26] MEDS: Enoxaparin 40 MG/0.4 ML Syringe SUBCUT SCH (08:59)
[2019-10-26] MEDS: Amiodarone 200 MG Tab PO SCH (08:59)
[2019-10-26] MEDS: Acetaminophen 500 MG Tab PO SCH ×3 (08:59→19:29)
[2019-10-26] MEDS: Polyethylene Glycol 3350 Powder 17 GM Packet PO SCH (08:59)
[2019-10-26] MEDS: Heparin Sodium 100 Units/ML 3 ML Syringe FLUSH SCH ×4 (09:00→19:20)
[2019-10-26] MEDS: Sodium Chloride 0.9% 10 ML Syringe IV SCH ×2 (09:01→19:20)
[2019-10-26] MEDS: Acetaminophen 325 MG Tab PO PRN (19:20)
[2019-10-26] MEDS: Simvastatin 40 MG Tab PO SCH (19:27)
[2019-10-26] MEDS: Melatonin 3 MG Tab PO SCH (19:27)
[2019-10-27] MEDS: Lidocaine 4% 1 each Patch TOP SCH (07:55)
[2019-10-27] MEDS: Acetaminophen 500 MG Tab PO SCH ×3 (07:57→19:29)
[2019-10-27] MEDS: Potassium Chloride 10 MEQ Tab.ER PO SCH ×3 (07:57→19:30)
[2019-10-27] MEDS: Beta-Carotene (Vitamin A) w/Vitamin C & E plus Minerals Tab PO SCH ×2 (07:58→19:29)
[2019-10-27] MEDS: Aspirin 81 MG Tab.EC PO SCH (07:58)
[2019-10-27] MEDS: Metoclopramide 10 MG Tab PO SCH (07:58)
[2019-10-27] MEDS: Amiodarone 200 MG Tab PO SCH (07:59)
[2019-10-27] MEDS: Heparin Sodium 100 Units/ML 3 ML Syringe FLUSH SCH ×2 (07:59→08:00)
[2019-10-27] MEDS: Metoprolol Tartrate 25 MG Tab PO SCH ×2 (07:59→19:30)
[2019-10-27] MEDS: Sodium Chloride 0.9% 10 ML Syringe IV SCH ×2 (08:00→19:31)
[2019-10-27] MEDS: Polyethylene Glycol 3350 Powder 17 GM Packet PO SCH (08:00)
[2019-10-27] MEDS: Enoxaparin 40 MG/0.4 ML Syringe SUBCUT SCH (08:08)
[2019-10-27] MEDS ORDERED: QUEtiapine 25 MG Tab PO PRN (08:23)
[2019-10-27 09:35] LABS: CHLORIDE,CL 110 mmol/L (98-107); SODIUM,NA 144 mmol/L (136-145)
[2019-10-27 09:40] LABS: ANION GAP 14.7 mmol/L (10-20)
[2019-10-27] MEDS: Melatonin 3 MG Tab PO SCH (19:29)
[2019-10-27] MEDS: QUEtiapine 25 MG Tab PO SCH (19:30)
[2019-10-27] MEDS: Simvastatin 40 MG Tab PO SCH (19:31)
--- NOTE | 2019-10-27 22:20 | PCM.PN ---
- General Info Date of Service: 10/27/19 Functional Status: Reports: Pain Controlled - Review of Systems General: Reports: Other HEENT: Reports: No Symptoms Pulmonary: Reports: No Symptoms Cardiovascular: Reports: No Symptoms Gastrointestinal: Reports: No Symptoms Genitourinary: Reports: No Symptoms Musculoskeletal: Reports: No Symptoms Skin: Reports: No Symptoms Neurological: Reports: Confusion Psychiatric: Reports: Confusion - Patient Data Vitals - Most Recent: Last Vital Signs Temp 98.3 F 10/27/19 04:50 Pulse 75 10/27/19 19:30 Resp 18 10/27/19 04:50 BP 120/70 10/27/19 19:30 Pulse Ox 98 10/27/19 04:50 Weight - Most Recent: 97.069 kg I&O - Last 24 Hours: Intake & Output 10/27/19 10/27/19 10/27/19 06:59 14:59 22:59 Intake Total 540 240 Balance 540 240 Lab Results Last 24 Hours: Laboratory Results - last 24 hr 10/27/19 10/27/19 10/27/19 Range/Units 09:06 09:06 13:35 WBC 10.3 H (4.0-10.0) x10^3/uL RBC 3.31 L (4.5-6.0) x10^6/uL Hgb 10.2 L (14.0-18.0) g/dL Hct 32.9 L (40.0-52.0) % MCV 99.4 H (78.0-93.0) fL MCH 30.8 (26.0-32.0) pg MCHC 31.0 L (32.0-36.0) g/dL RDW Coeff of [place] 17.4 H (10.0-15.0) % Plt Count 474 H (130-400) x10^3/uL Add Manual Diff Yes Neutrophils % (Manual) 86 H (50-80) % Band Neutrophils % 2 (0-6) % Lymphocytes % (Manual) 5 L (25-50) % Monocytes % (Manual) 3 (2-11) % Eosinophils % (Manual) 4 (0-4) % Hypersegmented Neuts Few H Platelet Estimate Increased H Anisocytosis 1+ slight H Sodium 144 (136-145) mmol/L Potassium 3.7 (3.5-5.1) mmol/L Chloride 110 H (98-107) mmol/L Carbon Dioxide 23 (21-32) mmol/L Anion Gap 14.7 (10-20) mmol/L BUN 17 (7-18) mg/dL Creatinine 0.8 (0.70-1.30) mg/dL Est Cr Clr Drug Dosing 95.61 mL/min Estimated GFR (MDRD) > 60 BUN/Creatinine Ratio 21.25 Glucose 120 H (74-106) mg/dL Calcium 7.5 L (8.5-10.1) mg/dL Phosphorus 2.6 (2.6-4.7) mg/dL Albumin 2.2 L (3.4-5.0) g/dL Urine Color Dark yellow H (YELLOW) Urine Appearance Clear (CLEAR) Urine pH 6.0 (5.0-8.0) Ur Specific [place] >=1.030 Urine Protein Trace H (NEGATIVE) mg/dL Urine Glucose (UA) Negative (NEGATIVE) mg/dL Urine Ketones Negative (NEGATIVE) mg/dL Urine Occult Blood Trace-intact H (NEGATIVE) Urine Nitrite Negative (NEGATIVE) Urine Bilirubin Small H (NEGATIVE) Urine Urobilinogen 1.0 (0.2) EU/dL Ur Leukocyte Esterase Negative (NEGATIVE) Urine RBC 5-10 H (NOT SEEN) /HPF Urine WBC Not seen (NOT SEEN) /HPF Ur Squamous Epith Cells Rare (NEGATIVE) /HPF Calcium Oxalate Crystal Few H (NEGATIVE) /HPF Urine Bacteria Few H (NEGATIVE) /HPF Urine Mucus Moderate H (NEGATIVE) /LPF Med Orders - Current: Current Medications Acetaminophen (Tylenol Extra Strength) 1,000 mg PO TID [facility] Last Admin: 10/27/19 19:29 Dose: 1,000 mg Acetaminophen (Tylenol) 325 mg PO Q4H PRN PRN Reason: Pain Amiodarone HCl (Cordarone) 200 mg PO DAILY [facility] Last Admin: 10/27/19 07:59 Dose: 200 mg Aspirin (Halfprin) 81 mg PO DAILY [facility] Last Admin: 10/27/19 07:58 Dose: 81 mg Bisacodyl (Dulcolax) 10 mg RECTAL DAILY PRN PRN Reason: Constipation Enoxaparin Sodium (Lovenox) 40 mg SUBCUT DAILY [facility] Stop: 11/19/19 23:00 Last Admin: 10/27/19 08:08 Dose: 40 mg Levothyroxine Sodium (Levothyroxine) 175 mcg PO ACBREAKFAST [facility] Last Admin: 10/27/19 06:00 Dose: 175 mcg Lidocaine (Aspercreme 4%) 1 each TOP DAILY [facility] Last Admin: 10/27/19 07:55 Dose: 1 each Melatonin (Melatonin) 3 mg PO BEDTIME [facility] Last Admin: 10/27/19 19:29 Dose: 3 mg Metoclopramide HCl (Reglan) 10 mg PO DAILY [facility] Last Admin: 10/27/19 07:58 Dose: 10 mg Metoprolol Tartrate (Lopressor) 25 mg PO BID [facility] Last Admin: 10/27/19 19:30 Dose: 25 mg Multivitamins/Minerals (Prosight) 2 tab PO BID [facility] Last Admin: 10/27/19 19:29 Dose: 2 tab Polyethylene Glycol (Miralax) 17 gm PO DAILY [facility] Last Admin: 10/27/19 08:00 Dose: Not Given Potassium Chloride (Klor-Con 10) 20 meq PO TID [facility] Last Admin: 10/27/19 19:30 Dose: 20 meq Quetiapine Fumarate (Seroquel) 12.5 mg PO BEDTIME [facility] Last Admin: 10/27/19 19:30 Dose: 12.5 mg Quetiapine Fumarate (Seroquel) 12.5 mg PO QID PRN PRN Reason: Anxiety Senna/Docusate Sodium (Senna Plus) 1 tab PO BID [facility] Last Admin: 10/27/19 19:30 Dose: 1 tab Simvastatin (Zocor) 40 mg PO BEDTIME [facility] Last Admin: 10/27/19 19:31 Dose: 40 mg Sodium Chloride (Saline Flush) 10 ml IV ASDIRECTED PRN PRN Reason: PICC flush Last Admin: 10/25/19 12:50 Dose: 10 ml Discontinued Medications Acetaminophen (Tylenol Extra Strength) 1,000 mg PO Q6HR [facility] Last Admin: 10/24/19 06:07 Dose: 1,000 mg Heparin Sodium (Porcine) (Heparin Lock Flush 100 Units/Ml) 300 unit FLUSH BID [facility] Last Admin: 10/22/19 22:54 Dose: Not Given Heparin Sodium (Porcine) (Heparin Lock Flush 100 Units/Ml) 300 unit FLUSH ASDIRECTED PRN PRN Reason: PICC flush Heparin Sodium (Porcine) (Heparin Lock Flush 100 Units/Ml) 600 unit FLUSH BID [facility] Last Admin: 10/25/19 08:18 Dose: 600 unit Heparin Sodium (Porcine) (Heparin Lock Flush 100 Units/Ml) 600 unit FLUSH ASDIRECTED PRN PRN Reason: PICC flush Last Admin: 10/24/19 16:58 Dose: 600 unit Heparin Sodium (Porcine) (Heparin Lock Flush 100 Units/Ml) 300 unit FLUSH BID [facility] Last Admin: 10/27/19 07:59 Dose: 300 unit Heparin Sodium (Porcine) (Heparin Lock Flush 100 Units/Ml) 300 unit FLUSH BID [facility] Last Admin: 10/27/19 08:00 Dose: 300 unit Heparin Sodium (Porcine) (Heparin Lock Flush 100 Units/Ml) 300 unit FLUSH ASDIRECTED PRN PRN Reason: PICC flush Last Admin: 10/25/19 12:49 Dose: 300 unit Hydrochlorothiazide (Hydrochlorothiazide) 25 mg PO DAILY [facility] Potassium Chloride 20 meq/ (Premix) 50 mls @ 25 mls/hr IV Q2H [facility] Stop: 10/23/19 12:28 Last Admin: 10/23/19 11:47 Dose: 25 mls/hr Potassium Chloride 20 meq/ (Premix) 50 mls @ 50 mls/hr IV Q2H [facility] Stop: 10/24/19 16:59 Last Admin: 10/24/19 15:47 Dose: 50 mls/hr Potassium Chloride 20 meq/ (Premix) 50 mls @ 50 mls/hr IV ONETIME ONE Stop: 10/25/19 10:29 Last Admin: 10/25/19 09:43 Dose: 50 mls/hr Miscellaneous Information (Remove Patch) 1 ea TRDERM BEDTIME [facility] Last Admin: 10/25/19 19:49 Dose: 1 ea Polyethylene Glycol (Miralax) 17 gm PO BID [facility] Last Admin: 10/24/19 08:24 Dose: 17 gm Potassium Chloride (Klor-Con 10) 20 meq PO WITHBREAKFAST [facility] Last Admin: 10/23/19 09:49 Dose: 20 meq Sodium Chloride (Saline Flush) 10 ml IV BID [facility] Last Admin: 10/27/19 19:31 Dose: Not Given Tizanidine HCl (Zanaflex) 2 mg PO Q8H PRN PRN Reason: Muscle Spasm - Exam General: Alert, Oriented HEENT: Pupils Equal, Pupils Reactive Neck: Supple, Trachea Midline Lungs: Clear to Auscultation, Normal Respiratory Effort Cardiovascular: Regular Rate, Regular Rhythm GI/Abdominal Exam: Normal Bowel Sounds, Soft, Non-Tender Extremities: Normal Inspection Skin: Warm, Dry Neurological: No New Focal Deficit Psy/Mental Status: Alert, Normal Affect, Normal Mood Sepsis Event Note - Evaluation Sepsis Screening Result: No Definite Risk - Focused Exam Vital Signs: Vital Signs Pulse BP 10/27/19 19:30 75 120/70 Date Exam was Performed: 10/27/19 Time Exam was Performed: 22:15 - Problem List Review Problem List Initiated/Reviewed/Updated: Yes - My Orders Last 24 Hours: My Active Orders 10/27/19 08:22 Bladder Scan [RC] ASDIRECTED 10/27/19 08:23 QUEtiapine [SEROqueL] 12.5 mg PO QID PRN 10/27/19 15:04 Central Line PICC Discontinue [OM.PC] Routine 10/27/19 20:00 QUEtiapine [SEROqueL] 12.5 mg PO BEDTIME 11/01/19 05:15 BASIC METABOLIC PANEL,BMP [CHEM] AM CBC WITH AUTO DIFF [HEME] AM - Assessment Assessment:: 1. Delirium seems to improve as the day goes on and after his arrives 2. Trauma with rib and pelvis fx s/p surgery and spinal fractures 3. Hypokalemia 4. Ileus resolved 5. HTN 6. DVT prophylaxis 7. Mild anemia Plan: Lab today showed no concerning findings, UA ok Remove PICC start seroquel at night will also plan to stay here with him starting tomorrow Continue oral K Lab again on Friday Continue Lovenox Continue with therapies Note that I did let him sleep this AM, then PICC examined after our noon meeting and it looked fine if delirium continues will repeat a CXR he was more than alert when I seen him around lunch knew exactly how who I was and that he was in [place].
[2019-10-28] MEDS: Enoxaparin 40 MG/0.4 ML Syringe SUBCUT SCH (08:05)
[2019-10-28] MEDS: Lidocaine 4% 1 each Patch TOP SCH (08:06)
[2019-10-28] MEDS: Beta-Carotene (Vitamin A) w/Vitamin C & E plus Minerals Tab PO SCH ×2 (08:06→19:35)
[2019-10-28] MEDS: Metoclopramide 10 MG Tab PO SCH (08:06)
[2019-10-28] MEDS: Metoprolol Tartrate 25 MG Tab PO SCH ×2 (08:07→19:36)
[2019-10-28] MEDS: Acetaminophen 500 MG Tab PO SCH ×3 (08:07→19:36)
[2019-10-28] MEDS: Potassium Chloride 10 MEQ Tab.ER PO SCH ×3 (08:07→19:36)
[2019-10-28] MEDS: Amiodarone 200 MG Tab PO SCH (08:07)
[2019-10-28] MEDS: Aspirin 81 MG Tab.EC PO SCH (08:08)
[2019-10-28] MEDS: Polyethylene Glycol 3350 Powder 17 GM Packet PO SCH (08:26)
[2019-10-28] MEDS: Simvastatin 40 MG Tab PO SCH (19:35)
[2019-10-28] MEDS: Melatonin 3 MG Tab PO SCH (19:35)
[2019-10-28] MEDS: QUEtiapine 25 MG Tab PO SCH (19:37)
[2019-10-29] MEDS: Enoxaparin 40 MG/0.4 ML Syringe SUBCUT SCH (07:46)
[2019-10-29] MEDS: Lidocaine 4% 1 each Patch TOP SCH (07:47)
[2019-10-29] MEDS: Beta-Carotene (Vitamin A) w/Vitamin C & E plus Minerals Tab PO SCH ×2 (07:47→19:25)
[2019-10-29] MEDS: Metoprolol Tartrate 25 MG Tab PO SCH ×2 (07:48→19:24)
[2019-10-29] MEDS: Potassium Chloride 10 MEQ Tab.ER PO SCH ×3 (07:48→19:24)
[2019-10-29] MEDS: Acetaminophen 500 MG Tab PO SCH ×3 (07:48→19:25)
[2019-10-29] MEDS: Aspirin 81 MG Tab.EC PO SCH (07:48)
[2019-10-29] MEDS: Amiodarone 200 MG Tab PO SCH (07:48)
[2019-10-29] MEDS: Polyethylene Glycol 3350 Powder 17 GM Packet PO SCH (07:49)
[2019-10-29] MEDS: Metoclopramide 10 MG Tab PO SCH (07:59)
[2019-10-29] MEDS: Simvastatin 40 MG Tab PO SCH (19:24)
[2019-10-29] MEDS: Melatonin 3 MG Tab PO SCH (19:25)
[2019-10-29] MEDS: QUEtiapine 25 MG Tab PO SCH (19:25)
[2019-10-30] MEDS: Acetaminophen 325 MG Tab PO PRN (02:48)
[2019-10-30] MEDS: Aspirin 81 MG Tab.EC PO SCH (07:42)
[2019-10-30] MEDS: Beta-Carotene (Vitamin A) w/Vitamin C & E plus Minerals Tab PO SCH ×2 (07:42→19:45)
[2019-10-30] MEDS: Amiodarone 200 MG Tab PO SCH (07:43)
[2019-10-30] MEDS: Metoprolol Tartrate 25 MG Tab PO SCH ×2 (07:43→20:15)
[2019-10-30] MEDS: Acetaminophen 500 MG Tab PO SCH ×3 (07:43→19:44)
[2019-10-30] MEDS: Potassium Chloride 10 MEQ Tab.ER PO SCH ×3 (07:43→19:45)
[2019-10-30] MEDS: Metoclopramide 10 MG Tab PO SCH (07:43)
[2019-10-30] MEDS: Enoxaparin 40 MG/0.4 ML Syringe SUBCUT SCH (07:44)
[2019-10-30] MEDS: Polyethylene Glycol 3350 Powder 17 GM Packet PO SCH (07:44)
[2019-10-30] MEDS: Lidocaine 4% 1 each Patch TOP SCH (07:50)
[2019-10-30] MEDS: Melatonin 3 MG Tab PO SCH (19:44)
[2019-10-30] MEDS: Simvastatin 40 MG Tab PO SCH (19:46)
[2019-10-30] MEDS: QUEtiapine 25 MG Tab PO SCH (19:46)
[2019-10-31] MEDS: Enoxaparin 40 MG/0.4 ML Syringe SUBCUT SCH (08:02)
[2019-10-31] MEDS: Lidocaine 4% 1 each Patch TOP SCH (08:02)
[2019-10-31] MEDS: Metoprolol Tartrate 25 MG Tab PO SCH ×2 (08:03→19:20)
[2019-10-31] MEDS: Metoclopramide 10 MG Tab PO SCH (08:03)
[2019-10-31] MEDS: Acetaminophen 500 MG Tab PO SCH ×3 (08:03→19:19)
[2019-10-31] MEDS: Potassium Chloride 10 MEQ Tab.ER PO SCH ×3 (08:03→19:19)
[2019-10-31] MEDS: Polyethylene Glycol 3350 Powder 17 GM Packet PO SCH (08:04)
[2019-10-31] MEDS: Beta-Carotene (Vitamin A) w/Vitamin C & E plus Minerals Tab PO SCH ×2 (08:04→19:20)
[2019-10-31] MEDS: Aspirin 81 MG Tab.EC PO SCH (08:04)
[2019-10-31] MEDS: Amiodarone 200 MG Tab PO SCH (08:04)
[2019-10-31] MEDS: Simvastatin 40 MG Tab PO SCH (19:20)
[2019-10-31] MEDS: QUEtiapine 25 MG Tab PO SCH (19:21)
[2019-10-31] MEDS: Melatonin 3 MG Tab PO SCH (19:21)
[2019-11-01 06:50] LABS: CHLORIDE,CL 111 mmol/L (98-107); SODIUM,NA 145 mmol/L (136-145)
[2019-11-01] MEDS: Lidocaine 4% 1 each Patch TOP SCH (08:17)
[2019-11-01] MEDS: Enoxaparin 40 MG/0.4 ML Syringe SUBCUT SCH (08:17)
[2019-11-01] MEDS: Acetaminophen 500 MG Tab PO SCH ×3 (08:18→19:25)
[2019-11-01] MEDS: Potassium Chloride 10 MEQ Tab.ER PO SCH ×3 (08:18→19:22)
[2019-11-01] MEDS: Polyethylene Glycol 3350 Powder 17 GM Packet PO SCH (08:18)
[2019-11-01] MEDS: Beta-Carotene (Vitamin A) w/Vitamin C & E plus Minerals Tab PO SCH ×2 (08:18→19:21)
[2019-11-01] MEDS: Aspirin 81 MG Tab.EC PO SCH (08:18)
[2019-11-01] MEDS: Metoprolol Tartrate 25 MG Tab PO SCH ×2 (08:19→19:21)
[2019-11-01] MEDS: Metoclopramide 10 MG Tab PO SCH (08:19)
[2019-11-01] MEDS: Amiodarone 200 MG Tab PO SCH (08:20)
[2019-11-01] MEDS: Hydrochlorothiazide 12.5 MG Cap PO SCH (09:20)
--- NOTE | 2019-11-01 10:43 | PN ---
Progress Note for GRETCHEN ALBRIGHT Date: 11/01/2019 Room #: VM.202 SUBJECTIVE: A 73-year-old seen today for followup. The patient is status post pelvic and rib fractures. He is not supposed to be up and ambulating, but he transferred himself to the chair last night. He remembers this. He states "that is probably why my blood pressure is up today." Otherwise, he is feeling fine. He is eating 100%. He is having regular bowel movements. He is not having any trouble breathing or cough. Overall, his swelling is actually improving some. He has been off hydrochlorothiazide due to severe hypokalemia that is now replaced. OBJECTIVE: Vital Signs: His temperature is 97.1, pulse 60, blood pressure 141/81, yesterday it was 151/74, respiratory rate 18, O2 of 95% on room air. General: He is in no acute distress. Abdomen: I did not do a complete physical exam, but his abdomen is soft, mildly distended, but nontender. Extremities: Do show trace to 1+ edema, overall it has improved. Mental Status: He is alert and orientated x3. ASSESSMENT: 1. Delirium, seems to be improving. He is still getting Seroquel at night. 2. Trauma with rib and pelvic fractures and spinal fractures. He is following his postoperative therapies. He has a bed alarm. We are keeping a close watch on him. 3. Hypokalemia, resolved. 4. Ileus, resolved. 5. Essential hypertension. I am restarting his hydrochlorothiazide. 6. Deep vein thrombosis prophylaxis. He is on Lovenox. 7. Mild anemia. Hemoglobin stable. PLAN: At this point, we will decrease Reglan down to 5 mg daily. We will continue Lovenox and therapies. We will repeat his lab work again in 1 week. MKA: 11/01/2019 09:42:09 MODL: 11/01/2019 10:37:27 /[id number]
[2019-11-01] MEDS: Simvastatin 40 MG Tab PO SCH (19:21)
[2019-11-01] MEDS: Melatonin 3 MG Tab PO SCH (19:21)
[2019-11-01] MEDS: QUEtiapine 25 MG Tab PO SCH (19:24)
[2019-11-02] MEDS: Metoclopramide 5 MG Tab PO SCH (06:18)
[2019-11-02] MEDS: Acetaminophen 500 MG Tab PO SCH ×3 (07:41→19:28)
[2019-11-02] MEDS: Beta-Carotene (Vitamin A) w/Vitamin C & E plus Minerals Tab PO SCH ×2 (07:42→19:28)
[2019-11-02] MEDS: Potassium Chloride 10 MEQ Tab.ER PO SCH ×3 (07:43→19:28)
[2019-11-02] MEDS: Hydrochlorothiazide 12.5 MG Cap PO SCH (07:43)
[2019-11-02] MEDS: Metoprolol Tartrate 25 MG Tab PO SCH ×2 (07:43→19:28)
[2019-11-02] MEDS: Lidocaine 4% 1 each Patch TOP SCH (07:44)
[2019-11-02] MEDS: Aspirin 81 MG Tab.EC PO SCH (07:44)
[2019-11-02] MEDS: Enoxaparin 40 MG/0.4 ML Syringe SUBCUT SCH (07:45)
[2019-11-02] MEDS: Amiodarone 200 MG Tab PO SCH (07:46)
[2019-11-02] MEDS: Polyethylene Glycol 3350 Powder 17 GM Packet PO SCH (08:22)
[2019-11-02] MEDS: Melatonin 3 MG Tab PO SCH (19:27)
[2019-11-02] MEDS: Simvastatin 40 MG Tab PO SCH (19:27)
[2019-11-02] MEDS: QUEtiapine 25 MG Tab PO SCH (19:31)
[2019-11-03] MEDS: Metoclopramide 5 MG Tab PO SCH (06:26)
[2019-11-03] MEDS: Enoxaparin 40 MG/0.4 ML Syringe SUBCUT SCH (09:19)
[2019-11-03] MEDS: Aspirin 81 MG Tab.EC PO SCH (09:20)
[2019-11-03] MEDS: Metoprolol Tartrate 25 MG Tab PO SCH ×2 (09:20→19:25)
[2019-11-03] MEDS: Potassium Chloride 10 MEQ Tab.ER PO SCH ×3 (09:20→19:26)
[2019-11-03] MEDS: Acetaminophen 500 MG Tab PO SCH ×3 (09:20→19:26)
[2019-11-03] MEDS: Hydrochlorothiazide 12.5 MG Cap PO SCH (09:21)
[2019-11-03] MEDS: Beta-Carotene (Vitamin A) w/Vitamin C & E plus Minerals Tab PO SCH ×2 (09:21→19:25)
[2019-11-03] MEDS: Amiodarone 200 MG Tab PO SCH (09:21)
[2019-11-03] MEDS: Lidocaine 4% 1 each Patch TOP SCH (09:22)
[2019-11-03] MEDS: Polyethylene Glycol 3350 Powder 17 GM Packet PO SCH (09:22)
[2019-11-03] MEDS: QUEtiapine 25 MG Tab PO SCH (19:25)
[2019-11-03] MEDS: Melatonin 3 MG Tab PO SCH (19:25)
[2019-11-03] MEDS: Simvastatin 40 MG Tab PO SCH (19:25)
[2019-11-04] MEDS: Metoclopramide 5 MG Tab PO SCH (06:00)
[2019-11-04] MEDS: Lidocaine 4% 1 each Patch TOP SCH (08:42)
[2019-11-04] MEDS: Enoxaparin 40 MG/0.4 ML Syringe SUBCUT SCH (08:42)
[2019-11-04] MEDS: Beta-Carotene (Vitamin A) w/Vitamin C & E plus Minerals Tab PO SCH ×2 (08:42→19:57)
[2019-11-04] MEDS: Acetaminophen 500 MG Tab PO SCH ×3 (08:44→19:57)
[2019-11-04] MEDS: Amiodarone 200 MG Tab PO SCH (08:44)
[2019-11-04] MEDS: Metoprolol Tartrate 25 MG Tab PO SCH ×2 (08:46→19:57)
[2019-11-04] MEDS: Polyethylene Glycol 3350 Powder 17 GM Packet PO SCH (08:47)
[2019-11-04] MEDS: Potassium Chloride 10 MEQ Tab.ER PO SCH ×3 (08:47→19:57)
[2019-11-04] MEDS: Aspirin 81 MG Tab.EC PO SCH (08:47)
[2019-11-04] MEDS: Hydrochlorothiazide 12.5 MG Cap PO SCH (08:47)
[2019-11-04] MEDS: Simvastatin 40 MG Tab PO SCH (19:57)
[2019-11-04] MEDS: QUEtiapine 25 MG Tab PO SCH (19:57)
[2019-11-04] MEDS: Melatonin 3 MG Tab PO SCH (19:57)
[2019-11-05] MEDS: Metoclopramide 5 MG Tab PO SCH (06:09)
--- NOTE | 2019-11-05 07:55 | PCM.SN ---
- Free Text/Narrative Note: I visited with him today he is feeling great thinks he finally has his head on straight. Eating good and no trouble breathing. He is back on HCTZ and leg swelling improved. Plan for lab Friday and stop Reglan.
[2019-11-05] MEDS: Hydrochlorothiazide 12.5 MG Cap PO SCH (08:53)
[2019-11-05] MEDS: Lidocaine 4% 1 each Patch TOP SCH (08:53)
[2019-11-05] MEDS: Potassium Chloride 10 MEQ Tab.ER PO SCH ×3 (08:53→19:43)
[2019-11-05] MEDS: Acetaminophen 500 MG Tab PO SCH ×3 (08:56→19:43)
[2019-11-05] MEDS: Amiodarone 200 MG Tab PO SCH (08:56)
[2019-11-05] MEDS: Beta-Carotene (Vitamin A) w/Vitamin C & E plus Minerals Tab PO SCH ×2 (08:56→19:43)
[2019-11-05] MEDS: Aspirin 81 MG Tab.EC PO SCH (08:56)
[2019-11-05] MEDS: Metoprolol Tartrate 25 MG Tab PO SCH ×2 (08:57→19:43)
[2019-11-05] MEDS: Enoxaparin 40 MG/0.4 ML Syringe SUBCUT SCH (08:57)
[2019-11-05] MEDS: Polyethylene Glycol 3350 Powder 17 GM Packet PO SCH (08:57)
[2019-11-05] MEDS: Simvastatin 40 MG Tab PO SCH (19:43)
[2019-11-05] MEDS: QUEtiapine 25 MG Tab PO SCH (19:43)
[2019-11-05] MEDS: Melatonin 3 MG Tab PO SCH (19:43)
[2019-11-06] MEDS: Enoxaparin 40 MG/0.4 ML Syringe SUBCUT SCH (07:54)
[2019-11-06] MEDS: Lidocaine 4% 1 each Patch TOP SCH (07:54)
[2019-11-06] MEDS: Acetaminophen 500 MG Tab PO SCH ×3 (07:55→19:33)
[2019-11-06] MEDS: Hydrochlorothiazide 12.5 MG Cap PO SCH (07:55)
[2019-11-06] MEDS: Beta-Carotene (Vitamin A) w/Vitamin C & E plus Minerals Tab PO SCH ×2 (07:55→19:31)
[2019-11-06] MEDS: Amiodarone 200 MG Tab PO SCH (07:56)
[2019-11-06] MEDS: Aspirin 81 MG Tab.EC PO SCH (07:56)
[2019-11-06] MEDS: Potassium Chloride 10 MEQ Tab.ER PO SCH ×3 (07:57→19:34)
[2019-11-06] MEDS: Metoprolol Tartrate 25 MG Tab PO SCH ×2 (08:01→19:31)
[2019-11-06] MEDS: Polyethylene Glycol 3350 Powder 17 GM Packet PO SCH (08:35)
[2019-11-06] MEDS: QUEtiapine 25 MG Tab PO SCH (19:30)
[2019-11-06] MEDS: Melatonin 3 MG Tab PO SCH (19:31)
[2019-11-06] MEDS: Simvastatin 40 MG Tab PO SCH (19:34)
[2019-11-07] MEDS: Enoxaparin 40 MG/0.4 ML Syringe SUBCUT SCH (08:38)
[2019-11-07] MEDS: Lidocaine 4% 1 each Patch TOP SCH (08:38)
[2019-11-07] MEDS: Acetaminophen 500 MG Tab PO SCH ×3 (08:39→20:03)
[2019-11-07] MEDS: Hydrochlorothiazide 12.5 MG Cap PO SCH (08:39)
[2019-11-07] MEDS: Metoprolol Tartrate 25 MG Tab PO SCH ×2 (08:43→19:59)
[2019-11-07] MEDS: Amiodarone 200 MG Tab PO SCH (08:44)
[2019-11-07] MEDS: Aspirin 81 MG Tab.EC PO SCH (08:44)
[2019-11-07] MEDS: Potassium Chloride 10 MEQ Tab.ER PO SCH ×3 (08:44→20:03)
[2019-11-07] MEDS: Beta-Carotene (Vitamin A) w/Vitamin C & E plus Minerals Tab PO SCH ×2 (08:44→19:59)
[2019-11-07] MEDS: Polyethylene Glycol 3350 Powder 17 GM Packet PO SCH (08:45)
[2019-11-07] MEDS: Melatonin 3 MG Tab PO SCH (19:59)
[2019-11-07] MEDS: QUEtiapine 25 MG Tab PO SCH (20:02)
[2019-11-07] MEDS: Simvastatin 40 MG Tab PO SCH (20:03)
[2019-11-08 06:52] LABS: CHLORIDE,CL 109 mmol/L (98-107); SODIUM,NA 144 mmol/L (136-145)
[2019-11-08 06:53] LABS: ANION GAP 11.5 mmol/L (10-20)
[2019-11-08] MEDS: Acetaminophen 500 MG Tab PO SCH ×3 (07:24→19:26)
[2019-11-08] MEDS: Beta-Carotene (Vitamin A) w/Vitamin C & E plus Minerals Tab PO SCH ×2 (07:24→19:28)
[2019-11-08] MEDS: Polyethylene Glycol 3350 Powder 17 GM Packet PO SCH (07:24)
[2019-11-08] MEDS: Enoxaparin 40 MG/0.4 ML Syringe SUBCUT SCH (07:25)
[2019-11-08] MEDS: Aspirin 81 MG Tab.EC PO SCH (07:25)
[2019-11-08] MEDS: Hydrochlorothiazide 12.5 MG Cap PO SCH (07:25)
[2019-11-08] MEDS: Potassium Chloride 10 MEQ Tab.ER PO SCH ×3 (07:25→19:26)
[2019-11-08] MEDS: Amiodarone 200 MG Tab PO SCH (07:26)
[2019-11-08] MEDS: Metoprolol Tartrate 25 MG Tab PO SCH ×2 (07:26→19:27)
[2019-11-08] MEDS: Lidocaine 4% 1 each Patch TOP SCH (07:35)
[2019-11-08] MEDS: Simvastatin 40 MG Tab PO SCH (19:27)
[2019-11-08] MEDS: QUEtiapine 25 MG Tab PO SCH (19:27)
[2019-11-08] MEDS: Melatonin 3 MG Tab PO SCH (19:28)
[2019-11-09] MEDS: Metoprolol Tartrate 25 MG Tab PO SCH ×2 (07:25→19:15)
[2019-11-09] MEDS: Potassium Chloride 10 MEQ Tab.ER PO SCH ×3 (07:25→19:16)
[2019-11-09] MEDS: Acetaminophen 500 MG Tab PO SCH ×3 (07:25→19:15)
[2019-11-09] MEDS: Hydrochlorothiazide 12.5 MG Cap PO SCH (07:25)
[2019-11-09] MEDS: Beta-Carotene (Vitamin A) w/Vitamin C & E plus Minerals Tab PO SCH ×2 (07:26→19:15)
[2019-11-09] MEDS: Amiodarone 200 MG Tab PO SCH (07:26)
[2019-11-09] MEDS: Enoxaparin 40 MG/0.4 ML Syringe SUBCUT SCH (07:26)
[2019-11-09] MEDS: Lidocaine 4% 1 each Patch TOP SCH (07:26)
[2019-11-09] MEDS: Aspirin 81 MG Tab.EC PO SCH (07:26)
[2019-11-09] MEDS: Polyethylene Glycol 3350 Powder 17 GM Packet PO SCH (11:58)
[2019-11-09] MEDS: Simvastatin 40 MG Tab PO SCH (19:15)
[2019-11-09] MEDS: QUEtiapine 25 MG Tab PO SCH (19:15)
[2019-11-09] MEDS: Melatonin 3 MG Tab PO SCH (19:16)
[2019-11-10] MEDS: Lidocaine 4% 1 each Patch TOP SCH (07:39)
[2019-11-10] MEDS: Acetaminophen 500 MG Tab PO SCH ×3 (07:40→19:53)
[2019-11-10] MEDS: Aspirin 81 MG Tab.EC PO SCH (07:40)
[2019-11-10] MEDS: Enoxaparin 40 MG/0.4 ML Syringe SUBCUT SCH (07:40)
[2019-11-10] MEDS: Hydrochlorothiazide 12.5 MG Cap PO SCH (07:40)
[2019-11-10] MEDS: Potassium Chloride 10 MEQ Tab.ER PO SCH ×3 (07:40→19:52)
[2019-11-10] MEDS: Beta-Carotene (Vitamin A) w/Vitamin C & E plus Minerals Tab PO SCH ×2 (07:40→19:52)
[2019-11-10] MEDS: Amiodarone 200 MG Tab PO SCH (07:40)
[2019-11-10] MEDS: Polyethylene Glycol 3350 Powder 17 GM Packet PO SCH (07:40)
[2019-11-10] MEDS: Metoprolol Tartrate 25 MG Tab PO SCH ×2 (07:41→19:52)
[2019-11-10] MEDS: QUEtiapine 25 MG Tab PO SCH (19:52)
[2019-11-10] MEDS: Melatonin 3 MG Tab PO SCH (19:52)
[2019-11-10] MEDS: Simvastatin 40 MG Tab PO SCH (19:53)
[2019-11-11] MEDS: Metoprolol Tartrate 25 MG Tab PO SCH ×2 (08:29→20:21)
[2019-11-11] MEDS: Acetaminophen 500 MG Tab PO SCH ×3 (08:29→20:22)
[2019-11-11] MEDS: Hydrochlorothiazide 12.5 MG Cap PO SCH (08:29)
[2019-11-11] MEDS: Potassium Chloride 10 MEQ Tab.ER PO SCH ×3 (08:29→20:22)
[2019-11-11] MEDS: Beta-Carotene (Vitamin A) w/Vitamin C & E plus Minerals Tab PO SCH ×2 (08:30→20:21)
[2019-11-11] MEDS: Amiodarone 200 MG Tab PO SCH (08:30)
[2019-11-11] MEDS: Enoxaparin 40 MG/0.4 ML Syringe SUBCUT SCH (08:30)
[2019-11-11] MEDS: Aspirin 81 MG Tab.EC PO SCH (08:30)
[2019-11-11] MEDS: Lidocaine 4% 1 each Patch TOP SCH (08:30)
[2019-11-11] MEDS: Polyethylene Glycol 3350 Powder 17 GM Packet PO SCH (08:31)
--- NOTE | 2019-11-11 17:18 | PN ---
Progress Note for GRETCHEN ALBRIGHT Date: 11/11/2019 Room #: VM.202 SUBJECTIVE: This is a 73-year-old, on swing bed, recovering after pelvic and rib fractures due to a fall from trauma. He states his pain is under control. His only concern is that his stools are looser and his has to take him to some appointments. He does still get confused at night, thinks that he can get up and go to the bathroom. He is progressing well with therapies. His blood pressure has been under okay control. He is back on his hydrochlorothiazide. His leg swelling has improved. He is not short of breath. OBJECTIVE: Vital Signs: Today; temperature 97.7, pulse 64, blood pressure 144/73, respiratory rate 17, and O2 saturation of 96% on room air. General: He is in no acute distress. Heart: Regular rate and rhythm. S1, S2, without murmur. Respiratory: Lungs sounds are clear to auscultation bilaterally without crackles or wheezes. Abdomen: Positive bowel sounds. Soft and nontender. Extremities: Warm and dry, just trace edema. Mental Status: Alert and orientated x3. ASSESSMENT: 1. Trauma with rib and pelvic fractures. He has appropriate followup with his surgeon next week. He will decide on further restrictions and weightbearing status. He will continue to work with therapies here. 2. Delirium and trouble sleeping. He does have Seroquel at bedtime scheduled. He has not had any p.r.n. dosing for several weeks. 3. Ileus. This has completely resolved. We will cut back on his MiraLAX to every other day. 4. Essential hypertension. He is on his home medications. 5. Deep vein thrombosis prophylaxis. He is still on Lovenox. 6. Atrial fibrillation. This all occurred at the time of his accident. He appears to be back in sinus. He has a followup with Cardiology next month. He is currently not on any anticoagulation. CTs done at the time of his incident showed some possible old strokes. He has never had a clinical stroke. 7. Mild anemia. He is getting lab work weekly. PLAN: At this point, the patient will continue on swing bed cares for further therapies. We will reduce his MiraLAX. MKA: 11/11/2019 16:42:53 MODL: 11/11/2019 17:10:42 /[id number]
[2019-11-11] MEDS: QUEtiapine 25 MG Tab PO SCH (20:21)
[2019-11-11] MEDS: Simvastatin 40 MG Tab PO SCH (20:21)
[2019-11-11] MEDS: Melatonin 3 MG Tab PO SCH (20:22)
[2019-11-12] MEDS: Enoxaparin 40 MG/0.4 ML Syringe SUBCUT SCH (08:26)
[2019-11-12] MEDS: Lidocaine 4% 1 each Patch TOP SCH (08:26)
[2019-11-12] MEDS: Aspirin 81 MG Tab.EC PO SCH (08:27)
[2019-11-12] MEDS: Metoprolol Tartrate 25 MG Tab PO SCH ×2 (08:27→20:14)
[2019-11-12] MEDS: Potassium Chloride 10 MEQ Tab.ER PO SCH ×3 (08:27→20:15)
[2019-11-12] MEDS: Acetaminophen 500 MG Tab PO SCH ×3 (08:27→20:16)
[2019-11-12] MEDS: Beta-Carotene (Vitamin A) w/Vitamin C & E plus Minerals Tab PO SCH ×2 (08:27→20:15)
[2019-11-12] MEDS: Amiodarone 200 MG Tab PO SCH (08:30)
[2019-11-12] MEDS: Hydrochlorothiazide 12.5 MG Cap PO SCH (08:30)
[2019-11-12] MEDS: Polyethylene Glycol 3350 Powder 17 GM Packet PO SCH (09:27)
[2019-11-12] MEDS: Simvastatin 40 MG Tab PO SCH (20:14)
[2019-11-12] MEDS: Melatonin 3 MG Tab PO SCH (20:15)
[2019-11-12] MEDS: QUEtiapine 25 MG Tab PO SCH (20:16)
[2019-11-13] MEDS: Lidocaine 4% 1 each Patch TOP SCH (08:35)
[2019-11-13] MEDS: Metoprolol Tartrate 25 MG Tab PO SCH ×2 (08:36→20:23)
[2019-11-13] MEDS: Enoxaparin 40 MG/0.4 ML Syringe SUBCUT SCH (08:36)
[2019-11-13] MEDS: Aspirin 81 MG Tab.EC PO SCH (08:36)
[2019-11-13] MEDS: Amiodarone 200 MG Tab PO SCH (08:36)
[2019-11-13] MEDS: Beta-Carotene (Vitamin A) w/Vitamin C & E plus Minerals Tab PO SCH ×2 (08:36→20:22)
[2019-11-13] MEDS: Potassium Chloride 10 MEQ Tab.ER PO SCH ×3 (08:37→20:23)
[2019-11-13] MEDS: Hydrochlorothiazide 12.5 MG Cap PO SCH (08:37)
[2019-11-13] MEDS: Acetaminophen 500 MG Tab PO SCH ×3 (08:37→20:25)
[2019-11-13] MEDS: Melatonin 3 MG Tab PO SCH (20:23)
[2019-11-13] MEDS: Simvastatin 40 MG Tab PO SCH (20:23)
[2019-11-13] MEDS: QUEtiapine 25 MG Tab PO SCH (20:24)
[2019-11-14] MEDS: Potassium Chloride 10 MEQ Tab.ER PO SCH ×3 (10:38→20:04)
[2019-11-14] MEDS: Metoprolol Tartrate 25 MG Tab PO SCH ×2 (10:38→20:06)
[2019-11-14] MEDS: Acetaminophen 500 MG Tab PO SCH ×3 (10:39→20:05)
[2019-11-14] MEDS: Amiodarone 200 MG Tab PO SCH (10:39)
[2019-11-14] MEDS: Aspirin 81 MG Tab.EC PO SCH (10:39)
[2019-11-14] MEDS: Hydrochlorothiazide 12.5 MG Cap PO SCH (10:41)
[2019-11-14] MEDS: Beta-Carotene (Vitamin A) w/Vitamin C & E plus Minerals Tab PO SCH ×2 (10:42→20:06)
[2019-11-14] MEDS: Polyethylene Glycol 3350 Powder 17 GM Packet PO SCH (10:43)
[2019-11-14] MEDS: Enoxaparin 40 MG/0.4 ML Syringe SUBCUT SCH (10:43)
[2019-11-14] MEDS: Lidocaine 4% 1 each Patch TOP SCH (10:43)
[2019-11-14] MEDS: Melatonin 3 MG Tab PO SCH (20:05)
[2019-11-14] MEDS: QUEtiapine 25 MG Tab PO SCH (20:06)
[2019-11-14] MEDS: Simvastatin 40 MG Tab PO SCH (20:06)
[2019-11-15 07:39] LABS: ANION GAP 9.5 mmol/L (10-20); CHLORIDE,CL 110 mmol/L (98-107); SODIUM,NA 144 mmol/L (136-145)
[2019-11-15] MEDS: Enoxaparin 40 MG/0.4 ML Syringe SUBCUT SCH (07:58)
[2019-11-15] MEDS: Lidocaine 4% 1 each Patch TOP SCH (07:58)
[2019-11-15] MEDS: Potassium Chloride 10 MEQ Tab.ER PO SCH ×3 (07:59→20:13)
[2019-11-15] MEDS: Amiodarone 200 MG Tab PO SCH (07:59)
[2019-11-15] MEDS: Aspirin 81 MG Tab.EC PO SCH (07:59)
[2019-11-15] MEDS: Acetaminophen 500 MG Tab PO SCH ×3 (07:59→20:12)
[2019-11-15] MEDS: Beta-Carotene (Vitamin A) w/Vitamin C & E plus Minerals Tab PO SCH ×2 (07:59→20:12)
[2019-11-15] MEDS: Hydrochlorothiazide 12.5 MG Cap PO SCH (07:59)
[2019-11-15] MEDS: Metoprolol Tartrate 25 MG Tab PO SCH ×2 (08:06→20:12)
--- NOTE | 2019-11-15 13:08 | CT ---
[id number] CT/CT Thoracic Spine WO IV Exam: CT Thoracic Spine WO IV Indication:Evaluation of fracture. Comparison: October 05, 2019. Discussion: T4 vertebral body compression fracture. There is mild to moderate vertebral body height loss. Height loss has slightly increased compared to October 05, 2019. The adjacent facet joints appear normal alignment. There is also a mild superior endplate compression fracture of T3 that was not evident on the prior examination (series 6 image 25). Fracture results in mild loss of vertebral body height. Diffusely seen fracture of the left T8 and T9 transverse processes as well as numerous posterior bilateral ribs demonstrate mineralized callus formation and osseous bridging. Findings are consistent with partial healing. Fracture lines remain radiographically evident. No change in fragment alignment. Small left pleural effusion with associated left lower lobe atelectasis. Impression: T4 compression fracture with mild to moderate loss of vertebral body height. Vertebral body height loss is slightly increased compared to the prior examination from October 05, 2019. Mild T3 superior endplate compression deformity not evident on the prior examination. Partial healing of previously seen posterior rib fractures and left transverse process fractures in the thoracic spine, described above. Aleksandr Dejesus MD 11/15/19 7930 Thank you for allowing us to participate in the care of your patient.
[2019-11-15] MEDS: Simvastatin 40 MG Tab PO SCH (20:12)
[2019-11-15] MEDS: QUEtiapine 25 MG Tab PO SCH (20:13)
[2019-11-15] MEDS: Melatonin 3 MG Tab PO SCH (20:13)
[2019-11-16] MEDS: Lidocaine 4% 1 each Patch TOP SCH (09:18)
[2019-11-16] MEDS: Aspirin 81 MG Tab.EC PO SCH (09:19)
[2019-11-16] MEDS: Enoxaparin 40 MG/0.4 ML Syringe SUBCUT SCH (09:19)
[2019-11-16] MEDS: Acetaminophen 500 MG Tab PO SCH ×3 (09:19→19:11)
[2019-11-16] MEDS: Metoprolol Tartrate 25 MG Tab PO SCH ×2 (09:20→19:10)
[2019-11-16] MEDS: Potassium Chloride 10 MEQ Tab.ER PO SCH ×3 (09:20→19:11)
[2019-11-16] MEDS: Amiodarone 200 MG Tab PO SCH (09:20)
[2019-11-16] MEDS: Hydrochlorothiazide 12.5 MG Cap PO SCH (09:20)
[2019-11-16] MEDS: Beta-Carotene (Vitamin A) w/Vitamin C & E plus Minerals Tab PO SCH ×2 (09:20→19:10)
[2019-11-16] MEDS: Polyethylene Glycol 3350 Powder 17 GM Packet PO SCH (09:25)
[2019-11-16] MEDS: Melatonin 3 MG Tab PO SCH (19:10)
[2019-11-16] MEDS: QUEtiapine 25 MG Tab PO SCH (19:11)
[2019-11-16] MEDS: Simvastatin 40 MG Tab PO SCH (19:11)
[2019-11-17] MEDS: Lidocaine 4% 1 each Patch TOP SCH (07:29)
[2019-11-17] MEDS: Acetaminophen 500 MG Tab PO SCH ×3 (07:30→19:11)
[2019-11-17] MEDS: Aspirin 81 MG Tab.EC PO SCH (07:30)
[2019-11-17] MEDS: Beta-Carotene (Vitamin A) w/Vitamin C & E plus Minerals Tab PO SCH ×2 (07:30→19:12)
[2019-11-17] MEDS: Hydrochlorothiazide 12.5 MG Cap PO SCH (07:30)
[2019-11-17] MEDS: Amiodarone 200 MG Tab PO SCH (07:30)
[2019-11-17] MEDS: Potassium Chloride 10 MEQ Tab.ER PO SCH ×3 (07:30→19:12)
[2019-11-17] MEDS: Enoxaparin 40 MG/0.4 ML Syringe SUBCUT SCH (07:30)
[2019-11-17] MEDS: Metoprolol Tartrate 25 MG Tab PO SCH ×2 (07:34→19:12)
[2019-11-17] MEDS: Simvastatin 40 MG Tab PO SCH (19:11)
[2019-11-17] MEDS: QUEtiapine 25 MG Tab PO SCH (19:11)
[2019-11-17] MEDS: Melatonin 3 MG Tab PO SCH (19:12)
[2019-11-18] MEDS: Beta-Carotene (Vitamin A) w/Vitamin C & E plus Minerals Tab PO SCH ×2 (08:53→19:36)
[2019-11-18] MEDS: Aspirin 81 MG Tab.EC PO SCH (08:54)
[2019-11-18] MEDS: Metoprolol Tartrate 25 MG Tab PO SCH ×2 (08:54→19:34)
[2019-11-18] MEDS: Potassium Chloride 10 MEQ Tab.ER PO SCH ×3 (08:54→19:36)
[2019-11-18] MEDS: Acetaminophen 500 MG Tab PO SCH ×3 (08:55→19:34)
[2019-11-18] MEDS: Amiodarone 200 MG Tab PO SCH (08:55)
[2019-11-18] MEDS: Lidocaine 4% 1 each Patch TOP SCH (08:55)
[2019-11-18] MEDS: Hydrochlorothiazide 12.5 MG Cap PO SCH (08:55)
[2019-11-18] MEDS: Enoxaparin 40 MG/0.4 ML Syringe SUBCUT SCH (08:55)
[2019-11-18] MEDS: Polyethylene Glycol 3350 Powder 17 GM Packet PO SCH (08:55)
[2019-11-18] MEDS: Melatonin 3 MG Tab PO SCH (19:34)
[2019-11-18] MEDS: Simvastatin 40 MG Tab PO SCH (19:36)
[2019-11-18] MEDS: QUEtiapine 25 MG Tab PO SCH (19:37)
[2019-11-19] MEDS: Metoprolol Tartrate 25 MG Tab PO SCH ×2 (07:34→19:38)
[2019-11-19] MEDS: Acetaminophen 500 MG Tab PO SCH ×3 (07:34→19:36)
[2019-11-19] MEDS: Beta-Carotene (Vitamin A) w/Vitamin C & E plus Minerals Tab PO SCH ×2 (07:34→19:37)
[2019-11-19] MEDS: Hydrochlorothiazide 12.5 MG Cap PO SCH (07:35)
[2019-11-19] MEDS: Aspirin 81 MG Tab.EC PO SCH (07:35)
[2019-11-19] MEDS: Amiodarone 200 MG Tab PO SCH (07:35)
[2019-11-19] MEDS: Enoxaparin 40 MG/0.4 ML Syringe SUBCUT SCH (07:35)
[2019-11-19] MEDS: Lidocaine 4% 1 each Patch TOP SCH (07:35)
[2019-11-19] MEDS: Potassium Chloride 10 MEQ Tab.ER PO SCH ×3 (07:35→19:37)
[2019-11-19] MEDS: Melatonin 3 MG Tab PO SCH (19:38)
[2019-11-19] MEDS: QUEtiapine 25 MG Tab PO SCH (19:39)
[2019-11-19] MEDS: Simvastatin 40 MG Tab PO SCH (21:06)
[2019-11-20] MEDS: Potassium Chloride 10 MEQ Tab.ER PO SCH ×3 (07:29→19:25)
[2019-11-20] MEDS: Amiodarone 200 MG Tab PO SCH (07:29)
[2019-11-20] MEDS: Beta-Carotene (Vitamin A) w/Vitamin C & E plus Minerals Tab PO SCH ×2 (07:29→19:25)
[2019-11-20] MEDS: Acetaminophen 500 MG Tab PO SCH ×3 (07:29→19:25)
[2019-11-20] MEDS: Hydrochlorothiazide 12.5 MG Cap PO SCH (07:29)
[2019-11-20] MEDS: Aspirin 81 MG Tab.EC PO SCH (07:29)
[2019-11-20] MEDS: Metoprolol Tartrate 25 MG Tab PO SCH ×2 (07:30→19:24)
[2019-11-20] MEDS: Polyethylene Glycol 3350 Powder 17 GM Packet PO SCH (07:31)
[2019-11-20] MEDS: Lidocaine 4% 1 each Patch TOP SCH (07:31)
[2019-11-20] MEDS: Simvastatin 40 MG Tab PO SCH (19:23)
[2019-11-20] MEDS: Melatonin 3 MG Tab PO SCH (19:23)
[2019-11-20] MEDS: QUEtiapine 25 MG Tab PO SCH (19:24)
[2019-11-21] MEDS: Acetaminophen 500 MG Tab PO SCH ×3 (08:16→19:36)
[2019-11-21] MEDS: Amiodarone 200 MG Tab PO SCH (08:18)
[2019-11-21] MEDS: Metoprolol Tartrate 25 MG Tab PO SCH ×2 (08:18→19:37)
[2019-11-21] MEDS: Aspirin 81 MG Tab.EC PO SCH (08:18)
[2019-11-21] MEDS: Beta-Carotene (Vitamin A) w/Vitamin C & E plus Minerals Tab PO SCH ×2 (08:18→19:37)
[2019-11-21] MEDS: Potassium Chloride 10 MEQ Tab.ER PO SCH ×3 (08:18→19:38)
[2019-11-21] MEDS: Hydrochlorothiazide 12.5 MG Cap PO SCH (08:18)
[2019-11-21] MEDS: Lidocaine 4% 1 each Patch TOP SCH (08:22)
[2019-11-21] MEDS: QUEtiapine 25 MG Tab PO SCH (19:36)
[2019-11-21] MEDS: Melatonin 3 MG Tab PO SCH (19:38)
[2019-11-21] MEDS: Simvastatin 40 MG Tab PO SCH (19:38)
[2019-11-22 07:11] LABS: CHLORIDE,CL 107 mmol/L (98-107); SODIUM,NA 143 mmol/L (136-145)
[2019-11-22 07:14] LABS: ANION GAP 11.6 mmol/L (10-20)
[2019-11-22] MEDS: Acetaminophen 500 MG Tab PO SCH ×3 (08:45→20:10)
[2019-11-22] MEDS: Beta-Carotene (Vitamin A) w/Vitamin C & E plus Minerals Tab PO SCH ×2 (08:45→20:10)
[2019-11-22] MEDS: Lidocaine 4% 1 each Patch TOP SCH (08:45)
[2019-11-22] MEDS: Hydrochlorothiazide 12.5 MG Cap PO SCH (08:46)
[2019-11-22] MEDS: Metoprolol Tartrate 25 MG Tab PO SCH ×2 (08:46→20:10)
[2019-11-22] MEDS: Aspirin 81 MG Tab.EC PO SCH (08:47)
[2019-11-22] MEDS: Amiodarone 200 MG Tab PO SCH (08:47)
[2019-11-22] MEDS: Potassium Chloride 10 MEQ Tab.ER PO SCH ×3 (08:47→20:09)
[2019-11-22] MEDS: Polyethylene Glycol 3350 Powder 17 GM Packet PO SCH (08:48)
[2019-11-22] MEDS ORDERED: Polyethylene Glycol 3350 Powder 17 GM Packet PO PRN (13:11)
[2019-11-22] MEDS: Apixaban 2.5 MG Tab PO SCH ×2 (13:53→20:09)
--- NOTE | 2019-11-22 14:39 | PN ---
Progress Note for GRETCHEN ALBRIGHT Date: 11/22/2019 Room #: VM.202 SUBJECTIVE: This is a 74-year-old here now for 1 month after a trauma falling off a ladder, breaking some ribs and his pelvis. The patient states that things are going well, but he is having 2 looser bowel movements a day. He would like to cut back on laxatives. He is already on MiraLAX every other day. He is due to see his orthopedic surgeon tomorrow and hopes that they will okay him to do some more walking. He is otherwise having good pain control. He has not had any fast or irregular heart beats, but he did have atrial fibrillation while he was down in [place] and had CT evidence of old strokes. He was on Lovenox for DVT prophylaxis, which finished last week. His breathing is okay. OBJECTIVE: Vital Signs: His temperature 97.3, pulse 68, blood pressure 135/60, respiratory rate 18, and O2 of 97% on room air. General: He is in no acute distress. Heart: Regular rate and rhythm. Lungs: Lung sounds are clear to auscultation bilaterally without crackles or wheezes. Abdomen: Nondistended, nontender. Extremities: Warm and dry. Still trace edema to his ankles. Mental Status: He is alert. He is orientated x3. He is still getting the Seroquel at bedtime but has not used any p.r.n. dosing. ASSESSMENT: 1. Atrial fibrillation, post trauma, seems to be back in sinus now but discussed with still impaired mobility, we will restart anticoagulation but do Eliquis 2.5 mg twice daily. He was agreeable to this. He does see Cardiology in a few weeks. 2. Trauma with rib and pelvic fractures. He is following up with his surgeon tomorrow. He will continue with therapies and increase activity as they allow. 3. Delirium and trouble sleeping. He is doing well on low-dose Seroquel. 4. Ileus. This completely resolved. We will change his MiraLAX to p.r.n. 5. Essential hypertension, doing well on home medications. 6. Deep vein thrombosis prophylaxis. We will start Eliquis. 7. Mild anemia. We have been doing his blood work weekly. His hemoglobin stable at 11.2. 8. Hypokalemia. This has been replaced. He is still on oral supplements. PLAN: At this point, the patient will continue swing bed cares. We will change his MiraLAX to p.r.n. We will do laboratory work again in 1 week and start him on the 2.5 b.i.d. of Kd. MKA: 11/22/2019 13:15:37 MODL: 11/22/2019 14:33:09 /[id number]
[2019-11-22] MEDS: Simvastatin 40 MG Tab PO SCH (20:09)
[2019-11-22] MEDS: Melatonin 3 MG Tab PO SCH (20:10)
[2019-11-22] MEDS: QUEtiapine 25 MG Tab PO SCH (20:10)
[2019-11-23] MEDS: Metoprolol Tartrate 25 MG Tab PO SCH ×2 (07:37→19:52)
[2019-11-23] MEDS: Hydrochlorothiazide 12.5 MG Cap PO SCH (07:38)
[2019-11-23] MEDS: Amiodarone 200 MG Tab PO SCH (07:38)
[2019-11-23] MEDS: Aspirin 81 MG Tab.EC PO SCH (07:38)
[2019-11-23] MEDS: Acetaminophen 500 MG Tab PO SCH ×3 (07:38→19:50)
[2019-11-23] MEDS: Apixaban 2.5 MG Tab PO SCH ×2 (07:38→19:49)
[2019-11-23] MEDS: Beta-Carotene (Vitamin A) w/Vitamin C & E plus Minerals Tab PO SCH ×2 (07:38→19:51)
[2019-11-23] MEDS: Potassium Chloride 10 MEQ Tab.ER PO SCH ×3 (07:39→19:50)
[2019-11-23] MEDS: Lidocaine 4% 1 each Patch TOP SCH (07:39)
[2019-11-23] MEDS: Simvastatin 40 MG Tab PO SCH (19:49)
[2019-11-23] MEDS: Melatonin 3 MG Tab PO SCH (19:49)
[2019-11-23] MEDS: QUEtiapine 25 MG Tab PO SCH (19:51)
[2019-11-24] MEDS: Apixaban 2.5 MG Tab PO SCH ×2 (07:34→20:08)
[2019-11-24] MEDS: Lidocaine 4% 1 each Patch TOP SCH (07:34)
[2019-11-24] MEDS: Aspirin 81 MG Tab.EC PO SCH (07:34)
[2019-11-24] MEDS: Beta-Carotene (Vitamin A) w/Vitamin C & E plus Minerals Tab PO SCH ×2 (07:34→20:09)
[2019-11-24] MEDS: Hydrochlorothiazide 12.5 MG Cap PO SCH (07:35)
[2019-11-24] MEDS: Metoprolol Tartrate 25 MG Tab PO SCH ×2 (07:35→20:09)
[2019-11-24] MEDS: Amiodarone 200 MG Tab PO SCH (07:35)
[2019-11-24] MEDS: Potassium Chloride 10 MEQ Tab.ER PO SCH ×3 (07:35→20:08)
[2019-11-24] MEDS: Acetaminophen 500 MG Tab PO SCH ×3 (07:35→20:09)
[2019-11-24] MEDS: QUEtiapine 25 MG Tab PO SCH (20:08)
[2019-11-24] MEDS: Melatonin 3 MG Tab PO SCH (20:08)
[2019-11-24] MEDS: Simvastatin 40 MG Tab PO SCH (20:09)
[2019-11-25] MEDS: Potassium Chloride 10 MEQ Tab.ER PO SCH ×3 (10:24→19:40)
[2019-11-25] MEDS: Lidocaine 4% 1 each Patch TOP SCH (10:24)
[2019-11-25] MEDS: Beta-Carotene (Vitamin A) w/Vitamin C & E plus Minerals Tab PO SCH ×2 (10:24→19:39)
[2019-11-25] MEDS: Metoprolol Tartrate 25 MG Tab PO SCH ×2 (10:25→19:39)
[2019-11-25] MEDS: Apixaban 2.5 MG Tab PO SCH ×2 (10:25→19:40)
[2019-11-25] MEDS: Acetaminophen 500 MG Tab PO SCH ×3 (10:26→19:40)
[2019-11-25] MEDS: Hydrochlorothiazide 12.5 MG Cap PO SCH (10:26)
[2019-11-25] MEDS: Aspirin 81 MG Tab.EC PO SCH (10:26)
[2019-11-25] MEDS: Amiodarone 200 MG Tab PO SCH (10:27)
[2019-11-25] MEDS: Simvastatin 40 MG Tab PO SCH (19:39)
[2019-11-25] MEDS: QUEtiapine 25 MG Tab PO SCH (19:40)
[2019-11-25] MEDS: Melatonin 3 MG Tab PO SCH (19:40)
[2019-11-26] MEDS: Aspirin 81 MG Tab.EC PO SCH (08:02)
[2019-11-26] MEDS: Apixaban 2.5 MG Tab PO SCH ×2 (08:02→19:21)
[2019-11-26] MEDS: Metoprolol Tartrate 25 MG Tab PO SCH ×2 (08:03→19:22)
[2019-11-26] MEDS: Acetaminophen 500 MG Tab PO SCH ×3 (08:04→19:21)
[2019-11-26] MEDS: Amiodarone 200 MG Tab PO SCH (08:04)
[2019-11-26] MEDS: Hydrochlorothiazide 12.5 MG Cap PO SCH (08:04)
[2019-11-26] MEDS: Beta-Carotene (Vitamin A) w/Vitamin C & E plus Minerals Tab PO SCH ×2 (08:05→19:21)
[2019-11-26] MEDS: Lidocaine 4% 1 each Patch TOP SCH (08:05)
[2019-11-26] MEDS: Potassium Chloride 10 MEQ Tab.ER PO SCH ×3 (08:05→19:21)
[2019-11-26] MEDS: Simvastatin 40 MG Tab PO SCH (19:21)
[2019-11-26] MEDS: QUEtiapine 25 MG Tab PO SCH (19:21)
[2019-11-26] MEDS: Melatonin 3 MG Tab PO SCH (21:00)
[2019-11-27] MEDS: Beta-Carotene (Vitamin A) w/Vitamin C & E plus Minerals Tab PO SCH ×2 (09:27→19:56)
[2019-11-27] MEDS: Potassium Chloride 10 MEQ Tab.ER PO SCH ×3 (09:27→19:57)
[2019-11-27] MEDS: Aspirin 81 MG Tab.EC PO SCH (09:27)
[2019-11-27] MEDS: Hydrochlorothiazide 12.5 MG Cap PO SCH (09:28)
[2019-11-27] MEDS: Acetaminophen 500 MG Tab PO SCH ×3 (09:28→19:57)
[2019-11-27] MEDS: Apixaban 2.5 MG Tab PO SCH ×2 (09:28→19:56)
[2019-11-27] MEDS: Metoprolol Tartrate 25 MG Tab PO SCH ×2 (09:28→19:57)
[2019-11-27] MEDS: Amiodarone 200 MG Tab PO SCH (09:28)
[2019-11-27] MEDS: Lidocaine 4% 1 each Patch TOP SCH (09:29)
[2019-11-27] MEDS: Melatonin 3 MG Tab PO SCH (19:57)
[2019-11-27] MEDS: QUEtiapine 25 MG Tab PO SCH (19:57)
[2019-11-27] MEDS: Simvastatin 40 MG Tab PO SCH (19:59)
[2019-11-28] MEDS: Metoprolol Tartrate 25 MG Tab PO SCH ×2 (08:15→19:20)
[2019-11-28] MEDS: Potassium Chloride 10 MEQ Tab.ER PO SCH ×3 (08:16→19:20)
[2019-11-28] MEDS: Aspirin 81 MG Tab.EC PO SCH (08:16)
[2019-11-28] MEDS: Lidocaine 4% 1 each Patch TOP SCH (08:16)
[2019-11-28] MEDS: Beta-Carotene (Vitamin A) w/Vitamin C & E plus Minerals Tab PO SCH ×2 (08:16→19:19)
[2019-11-28] MEDS: Apixaban 2.5 MG Tab PO SCH ×2 (08:16→19:19)
[2019-11-28] MEDS: Amiodarone 200 MG Tab PO SCH (08:16)
[2019-11-28] MEDS: Acetaminophen 500 MG Tab PO SCH ×3 (08:16→19:19)
[2019-11-28] MEDS: Hydrochlorothiazide 12.5 MG Cap PO SCH (08:16)
[2019-11-28] MEDS: Melatonin 3 MG Tab PO SCH (19:19)
[2019-11-28] MEDS: QUEtiapine 25 MG Tab PO SCH (19:19)
[2019-11-28] MEDS: Simvastatin 40 MG Tab PO SCH (19:20)
[2019-11-29 07:09] LABS: CHLORIDE,CL 107 mmol/L (98-107); SODIUM,NA 142 mmol/L (136-145)
[2019-11-29 07:10] LABS: ANION GAP 12.6 mmol/L (10-20)
[2019-11-29] MEDS: Aspirin 81 MG Tab.EC PO SCH (07:53)
[2019-11-29] MEDS: Lidocaine 4% 1 each Patch TOP SCH (07:53)
[2019-11-29] MEDS: Amiodarone 200 MG Tab PO SCH (07:53)
[2019-11-29] MEDS: Potassium Chloride 10 MEQ Tab.ER PO SCH ×3 (07:54→19:14)
[2019-11-29] MEDS: Hydrochlorothiazide 12.5 MG Cap PO SCH (07:54)
[2019-11-29] MEDS: Metoprolol Tartrate 25 MG Tab PO SCH ×2 (07:55→19:14)
[2019-11-29] MEDS: Acetaminophen 500 MG Tab PO SCH ×3 (08:01→19:13)
[2019-11-29] MEDS: Beta-Carotene (Vitamin A) w/Vitamin C & E plus Minerals Tab PO SCH ×2 (08:01→19:13)
[2019-11-29] MEDS: Apixaban 2.5 MG Tab PO SCH ×2 (10:14→19:14)
[2019-11-29] MEDS: QUEtiapine 25 MG Tab PO SCH (19:13)
[2019-11-29] MEDS: Melatonin 3 MG Tab PO SCH (19:13)
[2019-11-29] MEDS: Simvastatin 40 MG Tab PO SCH (19:14)
[2019-11-30] MEDS: Apixaban 2.5 MG Tab PO SCH ×2 (07:28→19:23)
[2019-11-30] MEDS: Aspirin 81 MG Tab.EC PO SCH (07:29)
[2019-11-30] MEDS: Metoprolol Tartrate 25 MG Tab PO SCH ×2 (07:29→19:21)
[2019-11-30] MEDS: Beta-Carotene (Vitamin A) w/Vitamin C & E plus Minerals Tab PO SCH ×2 (07:29→19:22)
[2019-11-30] MEDS: Hydrochlorothiazide 12.5 MG Cap PO SCH (07:29)
[2019-11-30] MEDS: Acetaminophen 500 MG Tab PO SCH ×3 (07:29→19:22)
[2019-11-30] MEDS: Amiodarone 200 MG Tab PO SCH (07:29)
[2019-11-30] MEDS: Potassium Chloride 10 MEQ Tab.ER PO SCH ×3 (07:29→19:22)
[2019-11-30] MEDS: Lidocaine 4% 1 each Patch TOP SCH (07:30)
[2019-11-30] MEDS: Simvastatin 40 MG Tab PO SCH (19:22)
[2019-11-30] MEDS: QUEtiapine 25 MG Tab PO SCH (19:22)
[2019-11-30] MEDS: Melatonin 3 MG Tab PO SCH (19:23)
[2019-12-01] MEDS: Amiodarone 200 MG Tab PO SCH (08:10)
[2019-12-01] MEDS: Beta-Carotene (Vitamin A) w/Vitamin C & E plus Minerals Tab PO SCH ×2 (08:10→19:15)
[2019-12-01] MEDS: Hydrochlorothiazide 12.5 MG Cap PO SCH (08:10)
[2019-12-01] MEDS: Potassium Chloride 10 MEQ Tab.ER PO SCH ×3 (08:11→19:15)
[2019-12-01] MEDS: Acetaminophen 500 MG Tab PO SCH ×3 (08:11→19:16)
[2019-12-01] MEDS: Metoprolol Tartrate 25 MG Tab PO SCH ×2 (08:11→19:16)
[2019-12-01] MEDS: Aspirin 81 MG Tab.EC PO SCH (08:12)
[2019-12-01] MEDS: Apixaban 2.5 MG Tab PO SCH ×2 (08:12→19:16)
[2019-12-01] MEDS: Melatonin 3 MG Tab PO SCH (19:16)
[2019-12-01] MEDS: Simvastatin 40 MG Tab PO SCH (19:16)
[2019-12-01] MEDS: QUEtiapine 25 MG Tab PO SCH (19:17)
[2019-12-02] MEDS: Metoprolol Tartrate 25 MG Tab PO SCH ×2 (07:43→19:48)
[2019-12-02] MEDS: Amiodarone 200 MG Tab PO SCH (07:44)
[2019-12-02] MEDS: Hydrochlorothiazide 12.5 MG Cap PO SCH (07:44)
[2019-12-02] MEDS: Apixaban 2.5 MG Tab PO SCH ×2 (07:44→19:48)
[2019-12-02] MEDS: Aspirin 81 MG Tab.EC PO SCH (07:44)
[2019-12-02] MEDS: Acetaminophen 500 MG Tab PO SCH ×3 (07:44→19:48)
[2019-12-02] MEDS: Potassium Chloride 10 MEQ Tab.ER PO SCH ×3 (07:44→19:48)
[2019-12-02] MEDS: Beta-Carotene (Vitamin A) w/Vitamin C & E plus Minerals Tab PO SCH ×2 (07:44→19:49)
[2019-12-02] MEDS: Simvastatin 40 MG Tab PO SCH (19:49)
[2019-12-02] MEDS: Melatonin 3 MG Tab PO SCH (19:49)
[2019-12-02] MEDS: QUEtiapine 25 MG Tab PO SCH (19:50)
[2019-12-03] MEDS: Potassium Chloride 10 MEQ Tab.ER PO SCH ×3 (08:14→20:51)
[2019-12-03] MEDS: Beta-Carotene (Vitamin A) w/Vitamin C & E plus Minerals Tab PO SCH ×2 (08:14→20:50)
[2019-12-03] MEDS: Aspirin 81 MG Tab.EC PO SCH (08:15)
[2019-12-03] MEDS: Acetaminophen 500 MG Tab PO SCH ×3 (08:15→20:50)
[2019-12-03] MEDS: Hydrochlorothiazide 12.5 MG Cap PO SCH (08:15)
[2019-12-03] MEDS: Metoprolol Tartrate 25 MG Tab PO SCH ×2 (08:16→20:51)
[2019-12-03] MEDS: Apixaban 2.5 MG Tab PO SCH ×2 (08:17→20:51)
[2019-12-03] MEDS: Amiodarone 200 MG Tab PO SCH (08:17)
[2019-12-03] MEDS: Simvastatin 40 MG Tab PO SCH (20:48)
[2019-12-03] MEDS: QUEtiapine 25 MG Tab PO SCH (20:48)
[2019-12-03] MEDS: Melatonin 3 MG Tab PO SCH (20:50)
[2019-12-04] MEDS: Beta-Carotene (Vitamin A) w/Vitamin C & E plus Minerals Tab PO SCH ×2 (08:33→19:45)
[2019-12-04] MEDS: Aspirin 81 MG Tab.EC PO SCH (08:33)
[2019-12-04] MEDS: Metoprolol Tartrate 25 MG Tab PO SCH ×2 (08:33→19:45)
[2019-12-04] MEDS: Acetaminophen 500 MG Tab PO SCH ×3 (08:33→19:45)
[2019-12-04] MEDS: Potassium Chloride 10 MEQ Tab.ER PO SCH ×3 (08:35→19:44)
[2019-12-04] MEDS: Apixaban 2.5 MG Tab PO SCH ×2 (08:35→19:44)
[2019-12-04] MEDS: Hydrochlorothiazide 12.5 MG Cap PO SCH (08:36)
[2019-12-04] MEDS: Amiodarone 200 MG Tab PO SCH (08:36)
--- NOTE | 2019-12-04 11:34 | PCM.SN ---
- Free Text/Narrative Note: Discussed with patient and plan to return home possible 12/09. Cognitive test has been ordered.
[2019-12-04] MEDS: Melatonin 3 MG Tab PO SCH (19:45)
[2019-12-04] MEDS: QUEtiapine 25 MG Tab PO SCH (19:48)
[2019-12-04] MEDS: Simvastatin 40 MG Tab PO SCH (19:49)
[2019-12-05] MEDS: Metoprolol Tartrate 25 MG Tab PO SCH ×2 (08:15→20:16)
[2019-12-05] MEDS: Hydrochlorothiazide 12.5 MG Cap PO SCH (08:15)
[2019-12-05] MEDS: Aspirin 81 MG Tab.EC PO SCH (08:17)
[2019-12-05] MEDS: Apixaban 2.5 MG Tab PO SCH ×2 (08:17→20:15)
[2019-12-05] MEDS: Acetaminophen 500 MG Tab PO SCH ×3 (08:17→20:15)
[2019-12-05] MEDS: Potassium Chloride 10 MEQ Tab.ER PO SCH ×3 (08:17→20:15)
[2019-12-05] MEDS: Amiodarone 200 MG Tab PO SCH (08:17)
[2019-12-05] MEDS: Beta-Carotene (Vitamin A) w/Vitamin C & E plus Minerals Tab PO SCH ×2 (08:17→20:16)
[2019-12-05] MEDS: QUEtiapine 25 MG Tab PO SCH (20:16)
[2019-12-05] MEDS: Melatonin 3 MG Tab PO SCH (20:16)
[2019-12-05] MEDS: Simvastatin 40 MG Tab PO SCH (20:17)
[2019-12-06] MEDS: Aspirin 81 MG Tab.EC PO SCH (07:59)
[2019-12-06] MEDS: Metoprolol Tartrate 25 MG Tab PO SCH ×2 (07:59→19:40)
[2019-12-06] MEDS: Beta-Carotene (Vitamin A) w/Vitamin C & E plus Minerals Tab PO SCH ×2 (07:59→19:40)
[2019-12-06] MEDS: Potassium Chloride 10 MEQ Tab.ER PO SCH ×3 (08:00→19:38)
[2019-12-06] MEDS: Hydrochlorothiazide 12.5 MG Cap PO SCH (08:00)
[2019-12-06] MEDS: Amiodarone 200 MG Tab PO SCH (08:00)
[2019-12-06] MEDS: Apixaban 2.5 MG Tab PO SCH ×2 (08:00→19:38)
[2019-12-06] MEDS: Acetaminophen 500 MG Tab PO SCH ×3 (08:00→19:37)
[2019-12-06] MEDS: QUEtiapine 25 MG Tab PO SCH (19:39)
[2019-12-06] MEDS: Melatonin 3 MG Tab PO SCH (19:39)
[2019-12-06] MEDS: Simvastatin 40 MG Tab PO SCH (19:40)
[2019-12-07] MEDS: Beta-Carotene (Vitamin A) w/Vitamin C & E plus Minerals Tab PO SCH ×2 (07:31→19:42)
[2019-12-07] MEDS: Apixaban 2.5 MG Tab PO SCH ×2 (07:31→19:42)
[2019-12-07] MEDS: Potassium Chloride 10 MEQ Tab.ER PO SCH ×3 (07:31→19:41)
[2019-12-07] MEDS: Aspirin 81 MG Tab.EC PO SCH (07:31)
[2019-12-07] MEDS: Hydrochlorothiazide 12.5 MG Cap PO SCH (07:31)
[2019-12-07] MEDS: Amiodarone 200 MG Tab PO SCH (07:31)
[2019-12-07] MEDS: Acetaminophen 500 MG Tab PO SCH ×3 (07:32→19:41)
[2019-12-07] MEDS: Metoprolol Tartrate 25 MG Tab PO SCH ×2 (07:32→19:41)
[2019-12-07] MEDS: QUEtiapine 25 MG Tab PO SCH (19:41)
[2019-12-07] MEDS: Simvastatin 40 MG Tab PO SCH (19:41)
[2019-12-07] MEDS: Melatonin 3 MG Tab PO SCH (19:42)
[2019-12-08] MEDS: Beta-Carotene (Vitamin A) w/Vitamin C & E plus Minerals Tab PO SCH ×2 (07:39→19:28)
[2019-12-08] MEDS: Potassium Chloride 10 MEQ Tab.ER PO SCH ×3 (07:40→19:28)
[2019-12-08] MEDS: Metoprolol Tartrate 25 MG Tab PO SCH ×2 (07:40→19:28)
[2019-12-08] MEDS: Hydrochlorothiazide 12.5 MG Cap PO SCH (07:40)
[2019-12-08] MEDS: Aspirin 81 MG Tab.EC PO SCH (07:40)
[2019-12-08] MEDS: Amiodarone 200 MG Tab PO SCH (07:40)
[2019-12-08] MEDS: Apixaban 2.5 MG Tab PO SCH ×2 (07:40→19:28)
[2019-12-08] MEDS: Acetaminophen 500 MG Tab PO SCH ×3 (07:41→19:27)
--- NOTE | 2019-12-08 17:35 | PN ---
Progress Note for GRETCHEN ALBRIGHT Date: 12/08/2019 Room #: VM.202 SUBJECTIVE: This is a 74-year-old admitted to swing bed on 10/22/2019 after an acute trauma stay, falling off his ladder while trying to clean the roof resulting in rib fractures, pelvis fracture, thoracic fractures and probably traumatic brain injury, although the patient reports he was having some forgetfulness even in the last year before this accident. He did have some delirium, but that has cleared up greatly since he has been here. The patient has not had any back pain. He is still wearing his brace. He had compression fractures in his spine and has had a CT. He had retroperitoneal hematoma and hemopneumothorax. All his tubes are out. He had some AFib while he was in acute care hospital. When he completed his Lovenox, we placed him on Eliquis. He is tolerating that okay without any bleeding problems. He did have a head scan showing some old strokes while he was on acute care at [place]. He actually just went down today and saw Cardiology due to being on amiodarone. Cardiology's plan would be to continue amiodarone for another 3 months, then do a Holter or other monitoring for any AFib, and if none, possibly even stop Eliquis. The patient states sometimes his bowels are getting loose again, but the other day they were just fine. He has been eating good, but he lost weight since he has been here. OBJECTIVE: Vital Signs: His temperature 97, pulse 51, blood pressure 122/66, respiratory rate 18, O2 of 96 on room air. General: He is in no acute distress. Heart: Regular rate and rhythm without murmur. Lungs: Lung sounds are clear to auscultation bilaterally without crackles or wheezes. Abdomen: Has positive bowel sounds. Soft, nontender. Extremities: Warm and dry. No edema. Mental Status: He is alert. He is orientated x3. Heart rate lowest charted was probably a 51. He has not had any under 50. He had a cognitive eval by OT got at 26/30. He scored a 3.5/5.8 on his ACL, which was around 72% of expected. He has not had any recent lab Work. ASSESSMENT AND PLAN: 1. Trauma occurring back in September, fall off the roof, rib fractures, pelvic, spinal fractures. He is due to be discharged Friday. Dr. Alhaji Masterson will discharge him and follow up with him in the clinic. He is also due for a CT of the thoracic spine and follow up with Neurosurgery on 12/29/2019. He is due for a followup with Dr. Ledbetter on 01/13/2020. He has followup with Cardiology regarding the amiodarone in 3 months. 2. Atrial fibrillation, post trauma. Heart rates have been controlled here. If he got severely bradycardic, could even stop the amiodarone sooner. We will get a TSH and lab work tomorrow. I would notify Cardiology if that were the case. 3. Delirium and trouble sleeping. This has all improved. He has not required any of his p.r.n. Seroquel. He is on low-dose 12.5 at night. We will continue with the same. 4. 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 He possibly even had a mild traumatic brain injury. He is going home with his . She will allow appropriate supervision. I have no concerns about this. 5. Hypokalemia. He is on oral replacement. We will recheck potassium in the morning. 6. Essential hypertension. He is back on his hydrochlorothiazide. We will continue with the same. 7. Mild anemia. Hemoglobins have been stable around 11. He has not required any transfusion here. PLAN: At this point, the patient will continue on swing bed cares. Plan home on current treatments Friday. Multiple new medications including amiodarone for the next 3 months, Eliquis until he follows up with Cardiology. Aspirin was discontinued as long as he is on Eliquis, but should resume aspirin if he goes off it. He is off all pain pills. We will check his thyroid levels tomorrow and make adjustments as needed. We will adjust his potassium doses as needed. Seroquel would be a new medication for him at bedtime, but is sleeping well and doing okay. Once he transitions home, this can be tapered off. MKA: 12/08/2019 16:44:37 MODL: 12/08/2019 17:10:28 /[id number] LORENZO
[2019-12-08] MEDS: Simvastatin 40 MG Tab PO SCH (19:27)
[2019-12-08] MEDS: Melatonin 3 MG Tab PO SCH (19:28)
[2019-12-08] MEDS: QUEtiapine 25 MG Tab PO SCH (19:28)
[2019-12-08] MEDS ORDERED: Acetaminophen 500 MG Tab PO PRN (20:59)
[2019-12-09 07:24] LABS: ANION GAP 15.1 mmol/L (10-20); CHLORIDE,CL 108 mmol/L (98-107); SODIUM,NA 144 mmol/L (136-145)
[2019-12-09] MEDS: Beta-Carotene (Vitamin A) w/Vitamin C & E plus Minerals Tab PO SCH ×2 (08:03→20:40)
[2019-12-09] MEDS: Hydrochlorothiazide 12.5 MG Cap PO SCH (08:04)
[2019-12-09] MEDS: Potassium Chloride 10 MEQ Tab.ER PO SCH ×3 (08:04→17:52)
[2019-12-09] MEDS: Metoprolol Tartrate 25 MG Tab PO SCH ×2 (08:05→21:34)
[2019-12-09] MEDS: Amiodarone 200 MG Tab PO SCH (08:06)
[2019-12-09] MEDS: Apixaban 2.5 MG Tab PO SCH ×2 (08:07→20:41)
--- NOTE | 2019-12-09 13:29 | PCM.DCSUM1 ---
Discharge Summary - Hospital Course Free Text/Narrative:: Patient admitted after a trauma fall from a ladder while cleaning snow off his roof. Rib, spinal, and pelvic fractures. See recent detailed progress note. Patient progressed well with therapies. Had some cognitive impairment but he and both report that was present prior to admit. He otherwise had a ileus when he arrived this resolved and we adjusted his stool medications accordingly. Lab work was monitored and looked ok. He was on lovenox for DVT prophylaxis and then Eliquis was started due to a. fib although he had no events here and HR around 50 so Cardiology recommended 100 mg of Amiodarone and see them in 3 months for further decision on that. Thyroid dose increased to 200 mcg also. - Discharge Data Discharge Date: 12/10/19 Discharge Disposition: Home, Self-Care Condition: Good - Referral to Home Health Primary Care Physician: He Masterson MD - Patient Summary/Data Consults: Consultations 10/22/19 14:08 PT Evaluation and Treatment [CONS] Routine 10/22/19 14:09 OT Evaluation and Treatment [CONS] Routine 10/22/19 14:11 Respiratory Care Assess and Treatment [CONS] Routine 12/03/19 10:32 OT Evaluation and Treatment [CONS] Routine - Patient Instructions Diet: Usual Diet as Tolerated Activity: As Tolerated, No Lifting Over 20 Pounds Driving: Do Not Drive Notify Provider of: Fever, Increased Pain, Nausea and/or Vomiting Other/Special Instructions: Keep lifting, twisint, turning, restrictions the same and continue your back brace until you have your follow up CT on 12/26 then see Neurosurgery on 12/28. Amiodarone 100 mg daily for 3 months then follow up with Cardiology for further decision on that. Eliquis to continue for stroke prophylaxis until discontinued by Cardiology. Take seroquel at bedtime to help with sleep if doing well when you get home you can go ahead and stop it. Increase thyroid to 200 mcg daily and repeat a level in 1 month. Recheck in the clinic 1-2 weeks for a post hospital follow up. No driving until you have a repeat driving eval. You declined home health - Discharge Plan Prescriptions/Med Rec: Apixaban [Eliquis] 2.5 mg PO BID #60 tablet hydroCHLOROthiazide [Hydrochlorothiazide] 12.5 mg PO DAILY #90 cap Levothyroxine [Synthroid] 200 mcg PO ACBREAKFAST #60 tablet Metoprolol Tartrate 25 mg PO BID #180 tablet Potassium Chloride [Klor-Con 10] 20 meq PO BID #60 tab.er QUEtiapine [SEROquel] 12.5 mg PO BEDTIME #30 tablet Home Medications: Home Meds Simvastatin [Zocor] 40 mg PO BEDTIME 11/18/16 [History] Acetaminophen 1,000 mg PO Q6HR 10/22/19 [History] Melatonin 3 mg PO BEDTIME 10/22/19 [History] Sennosides/Docusate Sodium [Senna-Docusate Sodium Tablet] 1 tab PO BID 10/22/19 [History] Vit A/Vit C/Vit E/Zinc/Copper [Preservision Areds Softgel] 2 cap PO BID [History] bisacodyL [Dulcolax] 10 mg RC DAILY PRN 10/22/19 [History] polyethylene glycoL 3350 [MiraLAX] 17 gm PO BID 10/22/19 [History] Acetaminophen [Tylenol Extra Strength] 1,000 mg PO TID PRN #30 tablet 12/08/19 [ Rx] Acetaminophen [Tylenol] 325 mg PO Q4H PRN tablet 12/08/19 [Rx] Apixaban [Eliquis] 2.5 mg PO BID #60 tablet 12/08/19 [Rx] Metoprolol Tartrate 25 mg PO BID #180 tablet 12/08/19 [Rx] Potassium Chloride [Klor-Con 10] 20 meq PO BID #60 tab.er 12/08/19 [Rx] QUEtiapine [SEROquel] 12.5 mg PO BEDTIME #30 tablet 12/08/19 [Rx] hydroCHLOROthiazide [Hydrochlorothiazide] 12.5 mg PO DAILY #90 cap 12/08/19 [Rx] Levothyroxine [Synthroid] 200 mcg PO ACBREAKFAST #60 tablet 12/09/19 [Rx] Oxygen Therapy Mode: Room Air - Discharge Summary/Plan Comment DC Time >30 min.: Yes - Patient Data Vitals - Most Recent: Last Vital Signs Temp 97.3 F 12/09/19 05:00 Pulse 62 12/09/19 08:05 Resp 18 12/09/19 05:00 BP 131/72 03/12/20 08:05 Pulse Ox 96 12/09/19 05:00 Weight - Most Recent: 83.915 kg I&O - Last 24 hours: Intake & Output 12/08/19 12/09/19 12/09/19 22:59 06:59 14:59 Intake Total 600 Balance 600 Lab Results - Last 24 hrs: Laboratory Results - last 24 hr 12/09/19 12/09/19 12/09/19 Range/Units 06:25 06:25 06:25 WBC 5.6 (4.0-10.0) x10^3/uL RBC 3.75 L (4.5-6.0) x10^6/uL Hgb 11.8 L (14.0-18.0) g/dL Hct 37.6 L (40.0-52.0) % MCV 100.3 H (78.0-93.0) fL MCH 31.5 (26.0-32.0) pg MCHC 31.4 L (32.0-36.0) g/dL RDW Coeff of Elba 14.8 (10.0-15.0) % Plt Count 316 (130-400) x10^3/uL Neut % (Auto) 65.5 (50.0-80.0) % Lymph % (Auto) 18.4 L (25.0-50.0) % Vance % (Auto) 8.5 (2.0-11.0) % Eos % (Auto) 7.1 H (0.0-4.0) % Baso % (Auto) 0.5 (0.2-1.2) % Sodium 144 (136-145) mmol/L Potassium 4.1 (3.5-5.1) mmol/L Chloride 108 H (98-107) mmol/L Carbon Dioxide 25 (21-32) mmol/L Anion Gap 15.1 (10-20) mmol/L BUN 17 (7-18) mg/dL Creatinine 0.8 (0.70-1.30) mg/dL Est Cr Clr Drug Dosing 94.19 mL/min Estimated GFR (MDRD) > 60 Glucose 101 (74-106) mg/dL Calcium 8.8 (8.5-10.1) mg/dL Corrected Calcium 9.36 (8.5-10.1) mg/dL Total Bilirubin 0.4 (0.2-1.0) mg/dL AST 31 (15-37) U/L ALT 57 (16-63) U/L Alkaline Phosphatase 161 H (46-116) U/L Total Protein 6.2 L (6.4-8.2) g/dL Albumin 3.3 L (3.4-5.0) g/dL Globulin 2.9 Albumin/Globulin Ratio 1.14 TSH, Ultra Sensitive 16.469 H (0.358-3.74) uIU/mL Med Orders - Current: Current Medications Acetaminophen (Tylenol Extra Strength) 1,000 mg PO TID PRN PRN Reason: Pain Amiodarone HCl (Cordarone) 100 mg PO DAILY [facility] Apixaban (Eliquis) 2.5 mg PO BID [facility] Last Admin: 12/09/19 08:07 Dose: 2.5 mg Bisacodyl (Dulcolax) 10 mg RECTAL DAILY PRN PRN Reason: Constipation Hydrochlorothiazide (Hydrochlorothiazide) 12.5 mg PO DAILY [facility] Last Admin: 12/09/19 08:04 Dose: 12.5 mg Levothyroxine Sodium (Synthroid) 200 mcg PO ACBREAKFAST [facility] Melatonin (Melatonin) 3 mg PO BEDTIME [facility] Last Admin: 12/08/19 19:28 Dose: 3 mg Metoprolol Tartrate (Lopressor) 25 mg PO BID [facility] Last Admin: 12/09/19 08:05 Dose: 25 mg Multivitamins/Minerals (Prosight) 2 tab PO BID [facility] Last Admin: 12/09/19 08:03 Dose: 2 tab Polyethylene Glycol (Miralax) 17 gm PO DAILY PRN PRN Reason: Constipation Potassium Chloride (Klor-Con 10) 20 meq PO BID [facility] Quetiapine Fumarate (Seroquel) 12.5 mg PO BEDTIME [facility] Last Admin: 12/08/19 19:28 Dose: 12.5 mg Senna/Docusate Sodium (Senna Plus) 1 tab PO BID PRN PRN Reason: Constipation Simvastatin (Zocor) 40 mg PO BEDTIME [facility] Last Admin: 12/08/19 19:27 Dose: 40 mg Discontinued Medications Acetaminophen (Tylenol Extra Strength) 1,000 mg PO Q6HR [facility] Last Admin: 10/24/19 06:07 Dose: 1,000 mg Acetaminophen (Tylenol Extra Strength) 1,000 mg PO TID [facility] Last Admin: 12/08/19 19:27 Dose: 1,000 mg Acetaminophen (Tylenol) 325 mg PO Q4H PRN PRN Reason: Pain Last Admin: 10/30/19 02:48 Dose: 325 mg Amiodarone HCl (Cordarone) 200 mg PO DAILY [facility] Last Admin: 12/09/19 08:06 Dose: 200 mg Aspirin (Halfprin) 81 mg PO DAILY [facility] Last Admin: 12/08/19 07:40 Dose: 81 mg Enoxaparin Sodium (Lovenox) 40 mg SUBCUT DAILY [facility] Stop: 11/19/19 23:00 Last Admin: 11/19/19 07:35 Dose: 40 mg Heparin Sodium (Porcine) (Heparin Lock Flush 100 Units/Ml) 300 unit FLUSH BID [facility] Last Admin: 10/22/19 22:54 Dose: Not Given Heparin Sodium (Porcine) (Heparin Lock Flush 100 Units/Ml) 300 unit FLUSH ASDIRECTED PRN PRN Reason: PICC flush Heparin Sodium (Porcine) (Heparin Lock Flush 100 Units/Ml) 600 unit FLUSH BID [facility] Last Admin: 10/25/19 08:18 Dose: 600 unit Heparin Sodium (Porcine) (Heparin Lock Flush 100 Units/Ml) 600 unit FLUSH ASDIRECTED PRN PRN Reason: PICC flush Last Admin: 10/24/19 16:58 Dose: 600 unit Heparin Sodium (Porcine) (Heparin Lock Flush 100 Units/Ml) 300 unit FLUSH BID [facility] Last Admin: 10/27/19 07:59 Dose: 300 unit Heparin Sodium (Porcine) (Heparin Lock Flush 100 Units/Ml) 300 unit FLUSH BID [facility] Last Admin: 10/27/19 08:00 Dose: 300 unit Heparin Sodium (Porcine) (Heparin Lock Flush 100 Units/Ml) 300 unit FLUSH ASDIRECTED PRN PRN Reason: PICC flush Last Admin: 10/25/19 12:49 Dose: 300 unit Hydrochlorothiazide (Hydrochlorothiazide) 25 mg PO DAILY [facility] Potassium Chloride 20 meq/ (Premix) 50 mls @ 25 mls/hr IV Q2H [facility] Stop: 10/23/19 12:28 Last Admin: 10/23/19 11:47 Dose: 25 mls/hr Potassium Chloride 20 meq/ (Premix) 50 mls @ 50 mls/hr IV Q2H [facility] Stop: 10/24/19 16:59 Last Admin: 10/24/19 15:47 Dose: 50 mls/hr Potassium Chloride 20 meq/ (Premix) 50 mls @ 50 mls/hr IV ONETIME ONE Stop: 10/25/19 10:29 Last Admin: 10/25/19 09:43 Dose: 50 mls/hr Levothyroxine Sodium (Levothyroxine) 175 mcg PO ACBREAKFAST [facility] Last Admin: 12/09/19 06:18 Dose: 175 mcg Lidocaine (Aspercreme 4%) 1 each TOP DAILY [facility] Last Admin: 11/30/19 07:30 Dose: Not Given Metoclopramide HCl (Reglan) 10 mg PO DAILY [facility] Last Admin: 11/01/19 08:19 Dose: 10 mg Metoclopramide HCl (Reglan) 5 mg PO DAILY@0700 [facility] Last Admin: 11/05/19 06:09 Dose: 5 mg Miscellaneous Information (Remove Patch) 1 ea TRDERM BEDTIME [facility] Last Admin: 10/25/19 19:49 Dose: 1 ea Polyethylene Glycol (Miralax) 17 gm PO BID [facility] Last Admin: 10/24/19 08:24 Dose: 17 gm Polyethylene Glycol (Miralax) 17 gm PO DAILY [facility] Last Admin: 11/11/19 08:31 Dose: Not Given Polyethylene Glycol (Miralax) 17 gm PO Q2D [facility] Last Admin: 11/22/19 08:48 Dose: Not Given Potassium Chloride (Klor-Con 10) 20 meq PO WITHBREAKFAST [facility] Last Admin: 10/23/19 09:49 Dose: 20 meq Potassium Chloride (Klor-Con 10) 20 meq PO TID [facility] Last Admin: 12/09/19 12:06 Dose: 20 meq Quetiapine Fumarate (Seroquel) 12.5 mg PO QID PRN PRN Reason: Anxiety Last Admin: 10/28/19 01:42 Dose: 12.5 mg Senna/Docusate Sodium (Senna Plus) 1 tab PO BID [facility] Last Admin: 11/09/19 07:25 Dose: 1 tab Sodium Chloride (Saline Flush) 10 ml IV ASDIRECTED PRN PRN Reason: PICC flush Last Admin: 10/25/19 12:50 Dose: 10 ml Sodium Chloride (Saline Flush) 10 ml IV BID [facility] Last Admin: 10/27/19 19:31 Dose: Not Given Tizanidine HCl (Zanaflex) 2 mg PO Q8H PRN PRN Reason: Muscle Spasm
[2019-12-09] MEDS: QUEtiapine 25 MG Tab PO SCH (20:40)
[2019-12-09] MEDS: Melatonin 3 MG Tab PO SCH (20:41)
[2019-12-09] MEDS: Simvastatin 40 MG Tab PO SCH (20:42)
[2019-12-10] MEDS ORDERED: Levothyroxine 100 MCG Tab PO SCH (07:00)
[2019-12-10] MEDS ORDERED: Amiodarone 200 MG Tab PO SCH (08:00)
[2019-12-10] MEDS: Potassium Chloride 10 MEQ Tab.ER PO SCH (09:05)
[2019-12-10] MEDS: Metoprolol Tartrate 25 MG Tab PO SCH (09:06)
[2019-12-10] MEDS: Apixaban 2.5 MG Tab PO SCH (09:07)
[2019-12-10] MEDS: Hydrochlorothiazide 12.5 MG Cap PO SCH (09:08)
[2019-12-10 09:10] VITALS: BP 112/60; PULSE 57
[2019-12-10] MEDS: Beta-Carotene (Vitamin A) w/Vitamin C & E plus Minerals Tab PO SCH (11:03)
== END 2019-12-10 12:20 | disposition home or self-care (01) | DRG 560 ==
LOC: VM.MS 15:07
PROVIDERS: ADMIT Internal Medicine; ATTEND Internal Medicine
DX: S32.029D Unspecified fracture of second lumbar vertebra, subsequent encounter for fracture with routine healing (principal); D62 Acute posthemorrhagic anemia; K56.7 Ileus, unspecified; S32.039D Unspecified fracture of third lumbar vertebra, subsequent encounter for fracture with routine healing; S32.302D Unspecified fracture of left ilium, subsequent encounter for fracture with routine healing; S32.301D Unspecified fracture of right ilium, subsequent encounter for fracture with routine healing; S32.049D Unspecified fracture of fourth lumbar vertebra, subsequent encounter for fracture with routine healing; S32.059D Unspecified fracture of fifth lumbar vertebra, subsequent encounter for fracture with routine healing; S22.049D Unspecified fracture of fourth thoracic vertebra, subsequent encounter for fracture with routine healing; S22.069D Unspecified fracture of T7-T8 vertebra, subsequent encounter for fracture with routine healing; S22.079D Unspecified fracture of T9-T10 vertebra, subsequent encounter for fracture with routine healing; S22.42XD Multiple fractures of ribs, left side, subsequent encounter for fracture with routine healing; S32.10XD Unspecified fracture of sacrum, subsequent encounter for fracture with routine healing; I10 Essential (primary) hypertension; E78.5 Hyperlipidemia, unspecified; E87.6 Hypokalemia; I48.91 Unspecified atrial fibrillation; G31.84 Mild cognitive impairment of uncertain or unknown etiology; Z79.890 Hormone replacement therapy; Z79.899 Other long term (current) drug therapy
CPT/HCPCS: 36415; 51798; 72128; 80048; 80053; 80069; 81001; 83735; 84132; 84436; 84443; 85025; 97110-GO; 97110-GP; 97116-GP; 97129-GO; 97161-GP; 97165-GO; 97168-GO; 97530-GP; 97535-GO; A9270-GY; J1642; J1650; J3480

== ENCOUNTER 2020-03-23 22:45 | Emergency (ER) | payer MEDICARE, OTHER ==
[2020-03-23] MEDS ORDERED: Sodium Chloride 0.9% 10 ML Syringe FLUSH PRN (22:53)
--- NOTE | 2020-03-23 23:02 | EDM.PDOC ---
ED HPI GENERAL MEDICAL PROBLEM - General Chief Complaint: General Stated Complaint: HIGH BP AND L SHOULDER PAIN Time Seen by Provider: 03/23/20 22:45 Source of Information: Reports: Patient History Limitations: Reports: No Limitations - History of Present Illness INITIAL COMMENTS - FREE TEXT/NARRATIVE: Patient comes into the emergency department with complaints of abdominal pain, left shoulder pain pressure. Patient states that he started having the above symptoms approximately 6 hours ago around suppertime. He did try walking after supper to help digest his food thinking it was food related. He also took 2 Tylenol. His ended up calling the emergency department stating that his blood pressure was greater than 200 systolic while his diastolic remained in the 70s. Patient was advised to present to the emergency room immediately for further evaluation. Patient states that the symptoms have resolved now and he states that he feels much better. He is never had feelings like this before in the past. Patient did have a significant fall back in September that did result in multiple surgical interventions in his chest related to multiple rib fractures as well as a pelvic fracture. He states that he healed up fairly well and has had no major concerns or complaints recently regarding that injury. Patient also denies any nausea, vomiting, diaphoresis, chest pain/tightness, shortness of breath, venous, blurred vision, feeling faint, urinary concerns, or peripheral edema. Denies any recent interactions with any individuals with COVID-19. He also denies any COVID symptom questions. He has been relatively healthy has had no major illnesses or injuries recently. He is also been taking his medications as prescribed. Onset: Sudden Quality: Reports: Ache, Dull Severity: Mild Improves with: Reports: Movement Worsens with: Reports: Immobilization Treatments TABLE [employer]: Reports: Acetaminophen Abdomen Pain Score (Numeric/FACES): 6 - Related Data Allergies Allergy/AdvReac Type Severity Reaction Status Date / Time No Known Allergies Allergy Verified 03/23/20 23:15 Home Meds: Home Meds Simvastatin [Zocor] 40 mg PO BEDTIME 11/18/16 [History] Acetaminophen 1,000 mg PO Q6HR 10/22/19 [History] Vit A/Vit C/Vit E/Zinc/Copper [Preservision Areds Softgel] 2 cap PO BID 10/22/19 [History] Apixaban [Eliquis] 2.5 mg PO BID #60 tablet 12/08/19 [Rx] Metoprolol Tartrate 25 mg PO BID #180 tablet 12/08/19 [Rx] QUEtiapine [SEROquel] 12.5 mg PO BEDTIME #30 tablet 12/08/19 [Rx] hydroCHLOROthiazide [Hydrochlorothiazide] 12.5 mg PO DAILY #90 cap 12/08/19 [Rx] Amiodarone [Cordarone] 100 mg PO DAILY tablet 12/09/19 [Rx] Levothyroxine [Synthroid] 200 mcg PO ACBREAKFAST #60 tablet 12/09/19 [Rx] Aspirin [Aspirin EC] 81 mg PO DAILY 03/23/20 [History] Potassium Chloride [Klor-Con 10] 10 meq PO BID 03/23/20 [History] Past Medical History HEENT History: Reports: None Cardiovascular History: Reports: Afib, CAD, High Cholesterol, Hypertension Respiratory History: Reports: None Gastrointestinal History: Reports: None Genitourinary History: Reports: None Musculoskeletal History: Reports: Fracture, Other (See Below) Other Musculoskeletal History: Trauma: multiple rib Fx, pevlic Fx, compression Fx Neurological History: Reports: None Psychiatric History: Reports: None Endocrine/Metabolic History: Reports: Hypothyroidism Other Endocrine/Metabolic History: graves disease Hematologic History: Reports: None Immunologic History: Reports: None Oncologic (Cancer) History: Reports: None Dermatologic History: Reports: None - Infectious Disease History Infectious Disease History: Reports: Chicken Pox - Past Surgical History Head Surgeries/Procedures: Reports: None HEENT Surgical History: Reports: Tonsillectomy GI Surgical History: Reports: Appendectomy Endocrine Surgical History: Reports: Other (See Below) Other Endocrine Surgeries/Procedures: Overactive thyroid Musculoskeletal Surgical History: Reports: ORIF Oncologic Surgical History: Reports: None Social & Family History - Family History Family Medical History: Noncontributory ED ROS GENERAL - Review of Systems Review Of Systems: Comprehensive ROS is negative, except as noted in HPI. Constitutional: Denies: Fever, Chills, Malaise, Weakness, Fatigue, Decreased Appetite HEENT: Reports: No Symptoms Respiratory: Reports: No Symptoms Endocrine: Reports: No Symptoms GI/Abdominal: Reports: No Symptoms : Reports: No Symptoms Musculoskeletal: Reports: No Symptoms Skin: Reports: No Symptoms Neurological: Reports: No Symptoms Psychiatric: Reports: No Symptoms Hematologic/Lymphatic: Reports: No Symptoms Immunologic: Reports: No Symptoms ED EXAM, GENERAL - Physical Exam Exam: See Below Exam Limited By: No Limitations General Appearance: Alert, WD/WN, No Apparent Distress Head: Atraumatic, Normocephalic Neck: Normal Inspection, Supple, Non-Tender, Full Range of Motion Respiratory/Chest: No Respiratory Distress, Lungs Clear, Normal Breath Sounds, No Accessory Muscle Use, Chest Non-Tender Cardiovascular: Normal Peripheral Pulses, Regular Rate, Rhythm, No Edema GI/Abdominal: Normal Bowel Sounds, Soft, Non-Tender, No Distention, No Abnormal Bruit Extremities: Normal Inspection, Normal Range of Motion, Non-Tender, Normal Capillary Refill Neurological: Alert, Oriented, Normal Gait Psychiatric: Normal Affect, Normal Mood Skin Exam: Warm, Dry, Intact Course - Vital Signs Last Recorded V/S: Last Vital Signs Temp 36.1 C 03/23/20 22:50 Pulse 47 L 03/24/20 00:07 Resp 12 03/24/20 00:07 BP 172/82 H 03/24/20 00:07 Pulse Ox 95 03/24/20 00:07 - Orders/Labs/Meds Orders: Active Orders 24 hr Category Date Time Status EKG Documentation Completion [RC] STAT Care 03/23/20 22:53 Active EKG Documentation Completion [RC] STAT Care 03/23/20 23:45 Active CTA Abd Pelv w Cont [CT] Stat Exams 03/23/20 22:53 Taken Sodium Chloride 0.9% @ 100 MLS/HR(1000ml) Med 03/24/20 01:00 Ordered Sodium Chloride 0.9% [Normal Saline] 1,000 ml IV ASDIRECTED Sodium Chloride 0.9% [Saline Flush] Med 03/23/20 22:53 Active 10 ml FLUSH ASDIRECTED PRN Peripheral IV Insertion Adult [OM.PC] Stat Oth 03/23/20 22:52 Ordered Medication Orders Sodium Chloride (Normal Saline) 1,000 mls @ 100 mls/hr IV ASDIRECTED PRIMO Sodium Chloride (Saline Flush) 10 ml FLUSH ASDIRECTED PRN PRN Reason: Keep Vein Open Labs: Laboratory Tests 03/23/20 03/23/20 03/23/20 Range/Units 23:08 23:08 23:08 WBC 10.3 H (4.0-10.0) x10^3/uL RBC 4.36 L (4.5-6.0) x10^6/uL Hgb 13.5 L D (14.0-18.0) g/dL Hct 40.6 (40.0-52.0) % MCV 93.1 H D (78.0-93.0) fL MCH 31.0 (26.0-32.0) pg MCHC 33.3 (32.0-36.0) g/dL RDW Coeff of [place] 14.2 (10.0-15.0) % Plt Count 220 D (130-400) x10^3/uL Neut % (Auto) 83.9 H (50.0-80.0) % Lymph % (Auto) 9.9 L (25.0-50.0) % Chase % (Auto) 4.8 (2.0-11.0) % Eos % (Auto) 1.1 (0.0-4.0) % Baso % (Auto) 0.3 (0.2-1.2) % PT 10.6 (9.5-12.3) SEC INR 1.0 L (2.0-3.5) Sodium 144 (136-145) mmol/L Potassium 4.3 (3.5-5.1) mmol/L Chloride 107 (98-107) mmol/L Carbon Dioxide 26 (21-32) mmol/L Anion Gap 15.3 (10-20) mmol/L BUN 21 H (7-18) mg/dL Creatinine 1.2 (0.70-1.30) mg/dL Est Cr Clr Drug Dosing 61.03 mL/min Estimated GFR (MDRD) 59 Glucose 140 H (74-106) mg/dL Calcium 8.5 (8.5-10.1) mg/dL Corrected Calcium 8.74 (8.5-10.1) mg/dL Total Bilirubin 0.4 (0.2-1.0) mg/dL AST 26 (15-37) U/L ALT 37 (16-63) U/L Alkaline Phosphatase 124 H (46-116) U/L POC Troponin I (0.00-0.08) ng/mL NT-Pro-B Natriuret Pep 195 H (<=125) pg/mL Total Protein 6.3 L (6.4-8.2) g/dL Albumin 3.7 (3.4-5.0) g/dL Globulin 2.6 Albumin/Globulin Ratio 1.42 Amylase 51 (25-115) U/L Lipase 169 (73-393) U/L / Range/Units 23:08 WBC (4.0-10.0) x10^3/uL RBC (4.5-6.0) x10^6/uL Hgb (14.0-18.0) g/dL Hct (40.0-52.0) % MCV (78.0-93.0) fL MCH (26.0-32.0) pg MCHC (32.0-36.0) g/dL RDW Coeff of [place] (10.0-15.0) % Plt Count (130-400) x10^3/uL Neut % (Auto) (50.0-80.0) % Lymph % (Auto) (25.0-50.0) % Chase % (Auto) (2.0-11.0) % Eos % (Auto) (0.0-4.0) % Baso % (Auto) (0.2-1.2) % PT (9.5-12.3) SEC INR (2.0-3.5) Sodium (136-145) mmol/L Potassium (3.5-5.1) mmol/L Chloride (98-107) mmol/L Carbon Dioxide (21-32) mmol/L Anion Gap (10-20) mmol/L BUN (7-18) mg/dL Creatinine (0.70-1.30) mg/dL Est Cr Clr Drug Dosing mL/min Estimated GFR (MDRD) Glucose (74-106) mg/dL Calcium (8.5-10.1) mg/dL Corrected Calcium (8.5-10.1) mg/dL Total Bilirubin (0.2-1.0) mg/dL AST (15-37) U/L ALT (16-63) U/L Alkaline Phosphatase (46-116) U/L POC Troponin I 0.00 (0.00-0.08) ng/mL NT-Pro-B Natriuret Pep (<=125) pg/mL Total Protein (6.4-8.2) g/dL Albumin (3.4-5.0) g/dL Globulin Albumin/Globulin Ratio Amylase (25-115) U/L Lipase (73-393) U/L Meds: Medications Generic Name Dose Route Start Last Admin Trade Name Najma PRN Reason Stop Dose Admin Sodium Chloride 1,000 mls @ 100 mls/hr 03/24/20 01:00 Normal Saline IV ASDIRECTED PRIMO Sodium Chloride 10 ml 03/23/20 22:53 Saline Flush FLUSH ASDIRECTED PRN Keep Vein Open Discontinued Medications Generic Name Dose Route Start Last Admin Trade Name Najma PRN Reason Stop Dose Admin Iopamidol 100 ml 03/23/20 23:09 03/23/20 23:28 Isovue-300 (61%) IVPUSH 03/23/20 23:10 100 ml ONETIME ONE Administration - Re-Assessments/Exams Free Text/Narrative Re-Assessment/Exam: 03/23/20 23:45 came to the nurses station and stated that the patient is complaining of left shoulder discomfort again. An EKG was ordered immediately. Upon examination the patient denies discomfort getting any worse or better with moving his arm over when palpating over the AC joint patient did state that it was more tender to touch. Denies any pain or discomfort with deep breaths. He also denies any active chest pain, shortness of breath, nausea, vomiting, or diaphoresis. Departure - Departure Time of Disposition: 00:47 Disposition: DC/Tfer to Acute Hospital 02 Condition: Good Clinical Impression: Incarcerated hernia - Discharge Information *PRESCRIPTION DRUG MONITORING PROGRAM REVIEWED*: Not Applicable *COPY OF PRESCRIPTION DRUG MONITORING REPORT IN PATIENT SARAI: Not Applicable Referrals: He Masterson MD [Primary Care Provider] - Forms: Interfacility Transfer [facility] Sepsis Event Note (ED) - Focused Exam Vital Signs: Vital Signs Temp Pulse Resp BP Pulse Ox 03/24/20 00:07 47 L 12 172/82 H 95 03/23/20 23:33 54 L 12 180/82 H 95 03/23/20 22:50 36.1 C 53 L 11 L 181/79 H 97 - My Orders Last 24 Hours: My Active Orders 03/23/20 22:52 Peripheral IV Insertion Adult [OM.PC] Stat 03/23/20 22:53 EKG Documentation Completion [RC] STAT CTA Abd Pelv w Cont [CT] Stat Sodium Chloride 0.9% [Saline Flush] 10 ml FLUSH ASDIRECTED PRN 03/23/20 23:45 EKG Documentation Completion [RC] STAT 03/24/20 01:00 Sodium Chloride 0.9% @ 100 MLS/HR(1000ml) Sodium Chloride 0.9% [Normal Saline] 1,000 ml IV ASDIRECTED - Assessment/Plan Last 24 Hours: My Active Orders 03/23/20 22:52 Peripheral IV Insertion Adult [OM.PC] Stat 03/23/20 22:53 EKG Documentation Completion [RC] STAT CTA Abd Pelv w Cont [CT] Stat Sodium Chloride 0.9% [Saline Flush] 10 ml FLUSH ASDIRECTED PRN 03/23/20 23:45 EKG Documentation Completion [RC] STAT 03/24/20 01:00 Sodium Chloride 0.9% @ 100 MLS/HR(1000ml) Sodium Chloride 0.9% [Normal Saline] 1,000 ml IV ASDIRECTED Assessment:: 1. abdominal pain 2. left shoulder pain 3. Hypertension Plan: 1. Labs completed in the ER. Results reviewed with the patient 2. CT scan completed in the ER. Results reviewed with the patient 3. IV initiated in the emergency department 4. IV fluids provided 5. Pain medication given for severe pain and discomfort-patient declined any pain medications 6. EKG x2 completed in ER. 7. Consultation completed with-Dr. Luna 8. Patient will be transferred to a higher level of care needing further medical and/or surgical interventions 9. Patient and nursing staff was updated regarding the plan of care 10. Patient and family are agreeable to the above plan of care 11. All questions and concerns were addressed with the patient and family prior to discharge
[2020-03-23] MEDS ORDERED: Iopamidol 612 MG/ML 100 ML Bottle IVPUSH ONE (23:09)
[2020-03-23 23:42] LABS: ANION GAP 15.3 mmol/L (10-20)
[2020-03-24 00:08] VITALS: BP 172/82; PULSE 47
[2020-03-24] MEDS ORDERED: Sodium Chloride 0.9% 1,000 ML IV SCH (01:00)
--- NOTE | 2020-03-24 08:04 | CT ---
[id number] CT/CTA Abdomen Pelvis EXAM: CTA Abdomen Pelvis CLINICAL DATA: ABDOMEN PAIN, SHOULDER PAIN COMPARISON STUDY: October 05, 2019. FINDINGS: Left diaphragmatic hernia not seen in September 2019. Defect measures approximately 37 x 37 mm. Hernia sac contains peritoneal fat and a loop colon. Loops: Is dilated with transition to decompressed bowel distal to the hernia sac. Findings suggest some degree of underlying colonic obstruction. There is a small amount of fluid in the hernia sac as well. 18 x 23 x 22 mm hypodense mass arising from the left kidney superior pole. Density is higher than that of water. This was seen previously and is similar in size and appearance. Gallbladder is underdistended limiting evaluation. Liver, pancreas, spleen, adrenal glands, and right kidney are unremarkable. No evidence of urinary tract obstruction. Prostate gland is enlarged. Measuring 58 x 62 x 60 mm. 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 Postsurgical change from left inguinal hernia repair. Postsurgical change from pelvic fracture ORIF with fixation screws across the sacroiliac articulations. Posterior right iliac fracture demonstrates well-corticated margins and persistent lucency. Small amount of mineralized callus formation at the fracture site. Fracture of the bilateral pubic rami as well. IMPRESSION: Left diaphragmatic hernia containing a loop of colon with possible changes of incarceration some degree of obstruction, described in detail above. Hernia was not seen on the prior examination. Left kidney hypodense mass demonstrating density higher than that of fluid. Finding is nonspecific however renal cell neoplasm is within the differential diagnosis. Other findings are described above. Aleksandr Dejesus MD 03/24/20 0803 Thank you for allowing us to participate in the care of your patient.
== END 2020-03-24 02:04 | disposition short-term general hospital (02) ==
LOC: VM.ED 22:45
DX: K44.0 Diaphragmatic hernia with obstruction, without gangrene (principal); I10 Essential (primary) hypertension; E78.00 Pure hypercholesterolemia, unspecified; I25.10 Atherosclerotic heart disease of native coronary artery without angina pectoris; I48.91 Unspecified atrial fibrillation; E03.9 Hypothyroidism, unspecified; Z79.82 Long term (current) use of aspirin; Z79.899 Other long term (current) drug therapy
CPT/HCPCS: 36415; 74174; 80053; 82150; 83690; 83880; 84484; 85025; 85610; 93005; 99284; 99285; J7030; Q9967